=== PATIENT | male | born 1950 | race Caucasian/White ===

== ENCOUNTER → 2018-08-29 09:42 | Outpatient (CLI) | payer MEDICARE, SELFPAY ==
[2018-08-29 11:10] LABS: PSA,Total - Annual Screen 1.96 ng/mL (0.00-4.00)
== END ==
PROVIDERS: Family Provider Family Medicine; PCP Family Medicine; Referring Provider Urology; Visit Provider Urology
DX: Z12.5 Encounter for screening for malignant neoplasm of prostate (principal)
CPT/HCPCS: 36415; 84153; G0103

== ENCOUNTER → 2020-02-26 08:32 | Outpatient (CLI) | payer MEDICARE, SELFPAY ==
[2020-02-26 09:36] LABS: PSA,Total - Annual Screen 1.43 ng/mL (0.00-4.00)
== END ==
PROVIDERS: PCP Family Medicine; Referring Provider Urology; Visit Provider Urology
DX: Z12.5 Encounter for screening for malignant neoplasm of prostate (principal)
CPT/HCPCS: 36415; 84153; G0103

== ENCOUNTER → 2021-03-15 09:25 | Outpatient (CLI) | payer MEDICARE, SELFPAY ==
[2021-03-15 10:07] LABS: PSA,Total - Annual Screen 1.88 ng/mL (0.00-4.00)
== END ==
PROVIDERS: PCP Internal Medicine; Referring Provider Urology; Visit Provider Urology
DX: Z12.5 Encounter for screening for malignant neoplasm of prostate (principal)
CPT/HCPCS: 36415; 84153; G0103

== ENCOUNTER 2021-06-08 07:00 | Emergency (ER) | payer MEDICARE, SELFPAY ==
[2021-06-08 07:01] VITALS: BP 172/87; PULSE 84; RESP 18; TEMP 36.9; O2SAT 95; BMI 29.6
--- NOTE | 2021-06-08 07:31 | RAD_ITS ---
STUDY: X-RAY CHEST REASON FOR EXAM: Male, 70 years old. Sob, covid TECHNIQUE: Single AP portable view of the chest. COMPARISON: None. FINDINGS: Patchy bibasilar infiltrates. There is no demonstrated pleural abnormality. Normal size heart. Normal mediastinum and aj. Normal visualized pulmonary arteries. There is atherosclerotic tortuosity of the aortic arch and descending thoracic aorta. There are diffuse degenerative changes of the visualized thoracic spine. There is degenerative osteoarthritis of the bilateral shoulders. There is no demonstrated abnormality of the visualized soft tissue structures of the upper abdomen. RAD/Chest 1 View (Portable) IMPRESSION: Patchy bibasilar infiltrates. Electronically Signed: Jason Garcia MD at 8:09 EDT , Service support ,
[2021-06-08 07:56] VITALS: O2SAT 95
[2021-06-08 08:04] VITALS: O2SAT 93
--- NOTE | 2021-06-08 08:14 | EX.ED.DYSGE1 ---
HPI History of Present Illness Chief Complaint: Shortness of Breath Informant: patient Narrative Narrative: Patient presents secondary to shortness of breath. He developed symptoms of Covid and tested positive on June 04. He has been monitoring his oxygen level at home. He states this morning it dropped down to 93%. His PCP sent him in for evaluation. He was told he should get the infusion. Patient denies chest pain. He states his O2 sat seem to be better here than they were at home. He has had low-grade fever up to 99.7. [facility] Medical History Prostate CA Home Medications benzonatate [Tessalon Perles] 100 mg PO TID PRN #14 cap 06/08/21 [Rx Last Taken Unknown] dexamethasone [Decadron] 6 mg PO DAILY #5 tab 06/08/21 [Rx Last Taken Unknown] Allergy/AdvReac Type Severity Reaction Status Date / Time No Known Allergies Allergy Verified 06/08/21 07:06 Social History Smoking Status: Former smoker ROS ROS ED Constitutional Constitutional ED: Reports fever(s); Denies chills Eyes Eyes: Denies change in vision ENT ENT ED: Denies sore throat Cardiovascular Cardiovascular: Denies chest pain Respiratory/Chest Respiratory/Chest: Reports cough and dyspnea Gastrointestinal Gastrointestinal: Denies abdominal pain, diarrhea, nausea or vomiting Genitourinary Genitourinary ED: Denies dysuria Musculoskeletal Musculoskeletal: Reports myalgias; Denies back pain Integumentary Denies rash Neurologic Neurologic: Denies headache(s) or weakness Psychiatric Psychiatric: Denies anxiety or depression Allergic/Immunologic Allergic/Immunologic ED: Denies urticaria EXAM Physical Exam Const Vital Signs: 06/08/21 07:01 06/08/21 07:56 Temperature 98.4 F Temperature Source Oral Pulse Rate 84 Respiratory Rate 18 Respiratory Effort Normal Non-Labored Respiratory Depth Normal Respiratory Pattern Normal Blood Pressure 172/87 H Blood Pressure Mean 115 Pulse Ox 95 Oxygen Delivery Method Room Air Room Air Positive well nourished and well developed General Appearance ED: well developed HEENT Reports normocephalic and head/scalp atraumatic Eyes PERRL and EOMs intact bilaterally Neck supple Chest Wall inspection of chest normal and palpation of chest normal Resp normal respiratory effort and clear to auscultation bilaterally Cardio regular rate and regular rhythm GI normal to inspection, nondistended, normoactive bowel sounds Palpation: soft Extremity normal to inspection Neuro oriented x3 and no sensory deficits noted Sensorium / Orientation: alert Motor Exam: strength 5/5 throughout Psych mental status grossly normal Skin no rashes or lesions noted MDM MDM MDM Narrative Medical decision making narrative: Portable chest x-ray and pulse ox with ambulation is ordered. Radiography Diagnostic Testing: Radiology Impression Chest X-Ray 06/08/21 07:31 IMPRESSION: Patchy bibasilar infiltrates. Electronically Signed: Jason Garcia MD at 8:09 EDT , Service support , Treatment and Re-Evaluation Comments:: Chest x-ray shows bilateral haziness. Radiologist interpretation is reviewed. With ambulation patient's pulse ox drops to 91% but he quickly recovers. This does not qualify for inpatient oxygen. I did discuss with him that monoclonal antibody treatment is not an option if he is an inpatient. I will gladly refer him for monoclonal antibody treatment. He should expect them to call with further information. Patient has a prescription for Decadron, but only 5 days. We will write him an additional 5 days. We will also write for Tessalon Perles. Discharge Plan Triage Chief Complaint: Shortness of Breath ED Provider: Priti Ji Dx/Rx/DC Orders Clinical Impression: COVID-19 Instructions: Coronavirus Disease 2019 (COVID-19): Caring for Yourself or Others Prescriptions: New dexamethasone [Decadron] 6 mg tablet 6 mg PO DAILY Qty: 5 RF: 0 benzonatate [Tessalon Perles] 100 mg capsule 100 mg PO TID PRN (Reason: cough) Qty: 14 RF: 0 Other Ambulatory Orders: COVID Outpatient Monoclonal Antibody Referral (Routine) Location: None Selected Ordered By: Dr. Priti Ji Primary Care Provider: Danna Ayala Referrals: Danna Ayala DO [Primary Care Provider] - Disposition Disposition: Home, Self Care
[2021-06-08 09:12] VITALS: BP 138/77; PULSE 72; RESP 16; O2SAT 95
== END 2021-06-08 09:13 | disposition home or self-care (01) ==
PROVIDERS: Emergency Provider Emergency Medicine; PCP Internal Medicine
DX: U07.1 COVID-19 (principal); Z87.891 Personal history of nicotine dependence
CPT/HCPCS: 71045; 99282; J7050; M0243; A4216; Q0244

== ENCOUNTER 2021-06-08 15:55 | Outpatient (CLI) | payer MEDICARE, SELFPAY ==
--- NOTE | 2021-06-08 16:00 | NURSING ---
Pt brought to room in w/c by security. Assisted to chair, call colon with/in reach.
[2021-06-08] MEDS: 0.9% Saline Lock 10 ML Syringe IV (16:21)
[2021-06-08 16:23] VITALS: BP 135/71; PULSE 88; RESP 38; TEMP 39.2; O2SAT 93; BMI 29.4
--- NOTE | 2021-06-08 16:45 | NURSING ---
called and notified of pt going to ER for evaluation. Verbalized understanding. Confirmed pt had been confused that morning and she had had a hard time keeping him awake at home. will meet pt in the ER.
--- NOTE | 2021-06-08 16:55 | NURSING ---
#20 in lac left in pt's arm. supervisor plasma notified of pt going to ER. She came and took pt to er.
--- NOTE | 2021-06-08 16:58 | NURSING ---
called and notified of pt going to er. verbalized understanding. will meet pt in er.
--- NOTE | 2021-06-08 17:40 | NURSING ---
This RN received Call from carpentry supervisor notifying me that pt will return to complete his infusion.
[2021-06-08 17:50] VITALS: BP 110/85; PULSE 85; RESP 35; TEMP 39.4; O2SAT 91
--- NOTE | 2021-06-08 17:50 | NURSING ---
Pt returned to room and infusion restarted.
[2021-06-08] MEDS: Acetaminophen 325 MG Tablet 650 MG PO (17:55)
--- NOTE | 2021-06-08 17:55 | NURSING ---
Pt back from ER. Here to finish infusion. Infusion restarted.
[2021-06-08 18:10] VITALS: BP 112/86; PULSE 88; RESP 34; TEMP 39.3; O2SAT 91
[2021-06-08 18:40] VITALS: TEMP 37.9
[2021-06-08 19:05] VITALS: BP 102/66; PULSE 83; RESP 26; TEMP 37.9
== END 2021-06-08 19:05 | disposition home or self-care (01) ==
LOC: ICUOUT 15:56 → ICU 15:56
PROVIDERS: PCP Internal Medicine; Referring Provider Nurse Practitioner Acute Care; Visit Provider Nurse Practitioner Acute Care
DX: U07.1 COVID-19 (principal)
CPT/HCPCS: J7050; M0243; A4216; Q0244

== ENCOUNTER 2021-06-08 17:05 | Emergency (ER) | payer MEDICARE, SELFPAY ==
[2021-06-08 17:06] VITALS: BP 128/62; PULSE 85; RESP 18; TEMP 39.3; O2SAT 93; BMI 31.2
--- NOTE | 2021-06-08 17:29 | EDS_ITS ---
HPI History of Present Illness Chief Complaint: Allergic Reaction Informant: patient, spouse/S.O. and other (hospital healthcare staff) Onset/Context/Timing Onset: Today Context: Gradual Onset Timing: Waxes and wanes Quality: disorientation Current Severity: Gone Maximum Severity: Moderate Worsened by: ? fever Relieved by: nothing in particular Narrative Narrative: Patient has been having symptoms of Covid for about 4 days and recently diagnosed with it, referred for the monoclonal antibody infusion which he qualified for, that started this morning. About 5 minutes into the infusion staff noticed he was disoriented so they quickly stop the infusion and send him to the emergency department out of concern he was having a reaction. Patient states he is feeling much better right now, does not feel like he is having a fever but clocks in at a temperature of 102.7. The admits that she thinks this started before the infusion started, and also was having some disorientation earlier this morning when being discharged from the emergency department and getting into the car. She needed to help him buckle of the seatbelt. He did not feel feverish then either. She states that she was very surprised to see that his temperature was 102.7 now because he did not seem to be shaking or chilling. He states now he is feeling better, but still having the Covid symptoms of malaise, body aches, headache, cough. [facility] Medical History Hypertension Prostate CA Home Medications benzonatate [Tessalon Perles] 100 mg PO TID PRN #14 cap 06/08/21 [Rx Last Taken 06/08/21] dexamethasone [Decadron] 6 mg PO DAILY #5 tab 06/08/21 [Rx Last Taken Unknown] lisinopril 10 mg PO DAILY 06/08/21 [History Last Taken Unknown] Allergy/AdvReac Type Severity Reaction Status Date / Time No Known Allergies Allergy Verified 06/08/21 17:14 Social History Smoking Status: Never smoker ROS ROS ED Constitutional Constitutional ED: Reports body ache(s) and malaise; Denies chills Eyes Eyes: Denies change in vision or diplopia ENT ENT ED: Denies rhinorrhea or sore throat Cardiovascular Cardiovascular: Denies chest pain or palpitations Respiratory/Chest Respiratory/Chest: Denies cough or dyspnea Gastrointestinal Gastrointestinal: Denies abdominal pain, diarrhea, nausea or vomiting Genitourinary Genitourinary ED: Denies dysuria or hematuria Musculoskeletal Musculoskeletal: Denies back pain or neck pain Integumentary Denies abscess or rash Neurologic Neurologic: Reports as per HPI, confusion and headache(s); Denies paresthesias or weakness Psychiatric Psychiatric: Denies anxiety or suicidal thoughts EXAM Physical Exam Const Vital Signs: 06/08/21 17:06 06/08/21 17:14 Temperature 102.7 F H Temperature Source Oral Pulse Rate 85 Respiratory Rate 18 Respiratory Effort Short of Breath Respiratory Pattern Tachypnea Blood Pressure 128/62 H Blood Pressure Mean 84 Pulse Ox 93 Oxygen Delivery Method Room Air Positive well nourished and well developed General Appearance ED: well developed and NAD HEENT Reports moist mucous membranes normocephalic and atraumatic Eyes PERRL and EOMs intact bilaterally Neck full ROM and supple Resp normal respiratory effort and clear to auscultation bilaterally Cardio regular rate, regular rhythm and no murmurs GI non-tender and non-distended Auscultation: normoactive bowel sounds Palpation: soft Back/Spine no CVA tenderness General Back: other FROM Extremity normal to inspection General Extremety ED: Negative for edema, pulses abnormal or tenderness General Extremity: Negative for edema or pulses abnormal Neuro oriented x3, CN's II-XII intact bilaterally and no sensory deficits noted Sensorium / Orientation: awake and alert Motor Exam: strength 5/5 throughout Skin no rashes or lesions noted and no wounds MDM MDM MDM Narrative Medical decision making narrative: Patient is no longer disoriented, confirms that he was disoriented when he was getting the infusion a little bit ago, similar to how he was when he was leaving the ER this morning. I suspect this is related to him mounting a fever, she is in agreement. He certainly is not having a reaction from the monoclonal antibody infusion, which she only had 5 minutes of. The patient wants to finish the infusion if possible and the would like for him to as well. I called to discuss with nurse in charge of the infusion clinic, she states she sent the patient down out of concern for w orsening Covid disease and may not be a candidate for the infusion any longer, she was not concerned that he was having a reaction to it. In my assessment at this time, his pulse ox is 93% and he still meets criteria. He states he feels fine except for malaise and having headache, we gave him Tylenol for his fever and headache here. I do not think he has moderate-severe Covid disease, as he did not have that this morning either. He does not have a supplemental oxygen requirement at this time. We will send him back up to finish his infusion if they are able to do it. Discharge Plan Triage Chief Complaint: Allergic Reaction ED Provider: Festus Suresh Dx/Rx/DC Orders Clinical Impression: COVID-19 Instructions: ED - COVID Monoclonal AB Infusion ... Prescriptions: No Action dexamethasone [Decadron] 6 mg tablet 6 mg PO DAILY Qty: 5 RF: 0 benzonatate [Tessalon Perles] 100 mg capsule 100 mg PO TID PRN (Reason: cough) Qty: 14 RF: 0 lisinopril 10 mg tablet 10 mg PO DAILY RF: 0 Primary Care Provider: Danna Ayala Referrals: Danna Ayala DO [Primary Care Provider] - As Needed Disposition Disposition: Home, Self Care
[2021-06-08] MEDS: Acetaminophen 500 MG Tablet 1000 MG PO (17:33)
== END 2021-06-08 17:51 | disposition home or self-care (01) ==
PROVIDERS: Emergency Provider Emergency Medicine; PCP Internal Medicine
DX: U07.1 COVID-19 (principal); I10 Essential (primary) hypertension; Z79.899 Other long term (current) drug therapy
CPT/HCPCS: A4216

== ENCOUNTER → 2021-06-09 15:00 | Outpatient (CLI) | payer MEDICARE, SELFPAY ==
--- NOTE | 2021-06-09 15:03 | VDLE_ITS ---
Reason For Study: RLE pain RIGHT CFV is compressible. FV is compressible. POP V is compressible. T/P Trunk is compressible. PTV is compressible. RT PerV is compressible. GSV is normal. Procedure This is a venous duplex using B-mode, color flow and spectral Doppler. Exam performed in department. The exam was abbreviated due to the COVID 19 protocol. The exam was diagnostic. A preliminary report was called and/or faxed to Dr. Ayala. VL/Venous Duplex US, Unilateral Interpretation Summary Deep veins of the right lower extremity are patent and compressible segmentally . There is no evidence of right lower extremity deep vein thrombosis. The right great sapheno us vein appears patent and compressible segmentally. Ordering Physician: Danna Ayala Performed By: Kaden Almanza RVT
== END ==
PROVIDERS: PCP Internal Medicine; Referring Provider Internal Medicine; Visit Provider Internal Medicine
DX: M79.661 Pain in right lower leg (principal)
CPT/HCPCS: 93971

== ENCOUNTER 2021-06-09 23:40 | Inpatient (IN) | payer MEDICARE, SELFPAY ==
[2021-06-09 23:41] VITALS: BP 140/76; PULSE 82; RESP 20; TEMP 36.7; O2SAT 76; BMI 29.4
[2021-06-09 23:51] VITALS: O2SAT 87
--- NOTE | 2021-06-09 23:59 | ED.RN ---
2349 PT PLACED ON 4L NC AND CHIEF POWER DISPATCHER, WENT TO FIND PULSE OX AND CAME BACK TO FIND LEXII RN HAD PT ON PULSE OX READING 87 PERCENT.
[2021-06-10] VITALS (44 sets, daily range): BP systolic 112–182; BP diastolic 72–100; PULSE 62–90; RESP 12–94; TEMP 36.2–37.4; O2SAT 26–98; BMI 29.4
--- NOTE | 2021-06-10 00:10 | EKG12_ITS ---
Test Reason : SOB Blood Pressure : / mmHG Vent. Rate : 080 BPM Atrial Rate : 080 BPM P-R Int : 144 ms QRS Dur : 126 ms QT Int : 396 ms P-R-T Axes : 015 058 -02 degrees QTc Int : 456 ms Normal sinus rhythm Right bundle branch block Abnormal ECG Confirmed by PATRICIA LANCASTER, LUC ([id number]), photo editor AMANDEEP AGUILAR ([id number]) on 06/13/2021 1:06:33 PM Referred By: ALESIA Confirmed By:LUC GOMEZ MD
--- NOTE | 2021-06-10 00:25 | EDS_ITS ---
HPI History of Present Illness Chief Complaint: Shortness of Breath Informant: patient Onset/Context/Timing Onset: Yesterday Context: gradual Timing: Continuous Quality: Positive for Dyspnea on exertion Current Severity: Mild Maximum Severity: Severe Worsened by: Exertion Relieved by: Oxygen (Here in ER) Narrative Narrative: Patient tested positive for Covid 5 days ago, yesterday he had monoclonal antibody infusion, today he began getting more dyspneic and his pulse ox dropped into the mid-low 80s most of the time this evening. He denies any other new symptoms. [facility] Medical History Hypertension Prostate CA Home Medications benzonatate [Tessalon Perles] 100 mg PO TID PRN #14 cap 06/08/21 [Rx Last Taken 06/08/21] dexamethasone [Decadron] 6 mg PO DAILY #5 tab 06/08/21 [Rx Last Taken Unknown] lisinopril 10 mg PO DAILY 06/08/21 [History Last Taken Unknown] Allergy/AdvReac Type Severity Reaction Status Date / Time No Known Allergies Allergy Verified 06/09/21 23:49 Family History Other Cancer Surgical History (Updated 06/10/21 @ 01:[address] Randal Ferraro MD) Hx of cholecystectomy Social History Smoking Status: Never smoker ROS ROS ED Constitutional Constitutional ED: Reports fatigue, fever(s), malaise and subjective; Denies body ache(s) or chills Eyes Eyes: Denies change in vision or diplopia ENT ENT ED: Denies rhinorrhea or sore throat Cardiovascular Cardiovascular: Denies chest pain or palpitations Respiratory/Chest Respiratory/Chest: Reports cough and dyspnea Gastrointestinal Gastrointestinal: Denies abdominal pain, diarrhea, nausea or vomiting Genitourinary Genitourinary ED: Denies dysuria or hematuria Musculoskeletal Musculoskeletal: Denies back pain or neck pain Integumentary Denies abscess or rash Neurologic Neurologic: Denies headache(s), paresthesias or weakness Psychiatric Psychiatric: Denies anxiety or suicidal thoughts EXAM Physical Exam Const Vital Signs: 06/09/21 23:41 06/09/21 23:51 06/10/21 00:05 Temperature 98.0 F Temperature Source Temporal Pulse Rate 82 Respiratory Rate 20 H Respiratory Effort Short of Breath Labored Respiratory Depth Deep Respiratory Pattern Tachypnea Blood Pressure 140/76 H Blood Pressure Mean 97 Pulse Ox 76 87 88 Oxygen Delivery Method Room Air Nasal Cannula Non-Rebreather Oxygen Flow Rate (L/min) 6 15 Fraction of Inspired Oxygen (FIO2) 06/10/21 00:11 06/10/21 00:15 06/10/21 01:42 Temperature 98.0 F Temperature Source Temporal Pulse Rate 76 83 Respiratory Rate 26 H 31 H Respiratory Effort Respiratory Depth Respiratory Pattern Tachypnea Blood Pressure 144/74 H Blood Pressure Mean 97 Pulse Ox 93 86 Oxygen Delivery Method Airvo Airvo Oxygen Flow Rate (L/min) 15 Fraction of Inspired Oxygen (FIO2) 85 85 06/10/21 01:43 06/10/21 01:52 06/10/21 01:53 Temperature Temperature Source Pulse Rate 74 Respiratory Rate 29 H Respiratory Effort Respiratory Depth Respiratory Pattern Tachypnea Blood Pressure Blood Pressure Mean Pulse Ox 93 Oxygen Delivery Method Airvo Oxygen Flow Rate (L/min) Fraction of Inspired Oxygen (FIO2) 90 85 06/10/21 02:11 Temperature 97.2 F L Temperature Source Temporal Pulse Rate 78 Respiratory Rate 32 H Respiratory Effort Respiratory Depth Respiratory Pattern Blood Pressure 152/83 H Blood Pressure Mean 106 Pulse Ox 94 Oxygen Delivery Method Bi-pap Oxygen Flow Rate (L/min) Fraction of Inspired Oxygen (FIO2) Positive well nourished and well developed Constitutional Narrative: Able to speak in 10 word sentences on a nonrebreather General Appearance ED: well developed and NAD HEENT Reports moist mucous membranes normocephalic and atraumatic Eyes PERRL and EOMs intact bilaterally Neck full ROM and supple Resp normal respiratory effort Auscultation: crackles right base and mid Cardio regular rate, regular rhythm and no murmurs GI non-tender and non-distended Auscultation: normoactive bowel sounds Palpation: soft Back/Spine no CVA tenderness General Back: other FROM Extremity normal to inspection General Extremety ED: Negative for edema, pulses abnormal or tenderness General Extremity: Negative for edema or pulses abnormal Neuro oriented x3, CN's II-XII intact bilaterally and no sensory deficits noted Sensorium / Orientation: awake and alert Motor Exam: strength 5/5 throughout Skin no rashes or lesions noted and no wounds MDM MDM MDM Narrative Medical decision making narrative: Patient requiring nonrebreather to keep his oxygen saturations at 88-90%, although he is breathing much easier and able to converse without any distress. We put him on airVo, this did help him for a while but he continued to drop his saturations and the patient stated he preferred a mask so he was put on BiPAP. X-ray shows worsening bilateral Covid infiltrates, his lactate is within normal limits, his D-dimer is elevated as suspected. He was sent for CT angiography of the chest to rule out pulmonary embolus, that returned negative for acute PE, the extensive bilateral groundglass opacities seen on x-rays are also noted. Patient will be admitted to ICU. Lab Data Attestation: I reviewed the patient's lab results. Labs: Laboratory Results - last 24 hr 06/10/21 06/10/21 06/10/21 00:05 00:05 00:05 WBC 11.4 H RBC 4.34 L Hgb 13.2 Hct 39.4 L MCV 90.8 MCH 30.4 MCHC 33.5 RDW Std Deviation 47.1 H RDW Coeff of [place] 14.0 Plt Count 121 L MPV 10.7 Immature Gran % (Auto) 0.600 Neut % (Auto) 91.0 H Lymph % (Auto) 4.3 L [place] % (Auto) 4.0 Eos % (Auto) 0.0 Baso % (Auto) 0.1 Absolute Neuts (auto) 10.4 H Absolute Lymphs (auto) 0.49 L Nucleated RBC % 0 Differential Comment SCANNED D-Dimer Quant (PE/DVT) Sodium 137 Potassium 4.0 Chloride 105 Carbon Dioxide 24.0 Anion Gap 8 BUN 24 H Creatinine 1.00 Estim Creat Clear Calc 73.29 Est GFR (MDRD) Af Amer 94 Est GFR (MDRD) Non-Af 78 BUN/Creatinine Ratio 24.0 H Glucose 207 H Lactic Acid 1.7 Calcium 8.8 Total Bilirubin 0.40 AST 38 H ALT 34 Alkaline Phosphatase 46 Troponin I High Sens 22 Total Protein 7.1 Albumin 2.9 L Globulin 4.2 Albumin/Globulin Ratio 0.7 L 06/10/21 00:25 WBC RBC Hgb Hct MCV MCH MCHC RDW Std Deviation RDW Coeff of [place] Plt Count MPV Immature Gran % (Auto) Neut % (Auto) Lymph % (Auto) [place] % (Auto) Eos % (Auto) Baso % (Auto) Absolute Neuts (auto) Absolute Lymphs (auto) Nucleated RBC % Differential Comment D-Dimer Quant (PE/DVT) 1.16 H* Sodium Potassium Chloride Carbon Dioxide Anion Gap BUN Creatinine Estim Creat Clear Calc Est GFR (MDRD) Af Amer Est GFR (MDRD) Non-Af BUN/Creatinine Ratio Glucose Lactic Acid Calcium Total Bilirubin AST ALT Alkaline Phosphatase Troponin I High Sens Total Protein Albumin Globulin Albumin/Globulin Ratio Radiography Chest X-Ray - ED: 1 View, Read by ED Physician, Right Infiltrate and Left Infiltrate Diagnostic Testing: Radiology Impression Chest X-Ray 06/10/21 00:35 IMPRESSION: Increased finding of bilateral pneumonia. Electronically Signed: Charanjit Carranza MD at 1:12 EDT Tel , Service support , Chest CTA 06/10/21 01:09 IMPRESSION: Extensive bilateral and confluent groundglass opacity concerning for multifocal pneumonia. No finding of pulmonary embolus. Electronically Signed: Charanjit Carranza MD at 1:56 EDT Tel , Service support , EKG Initial EKG: Attestation: I personally reviewed and interpreted this EKG as follows: Interpretation: Sinus Rhythm, No Acute Injury Pattern and RBBB Critical Care Time Critical Care Time: Yes Critical care time (excluding procedures): 30-74 minutes (35 min), Including time spent:, Discussing w/Patient &/or Family/Field Operations Farm Manager, Discussing w/Consultants, Arranging Admission or Transfer and Performing Direct Patient Care at Bedside Discharge Plan Dx/Rx/DC Orders Clinical Impression: Pneumonia due to COVID-19 virus, Acute respiratory failure with hypoxia Disposition Disposition: [facility]
[2021-06-10] MEDS: dexAMETHasone 10 MG/ML Vial 6 MG IV ×2 (00:28→11:00)
[2021-06-10 00:35] LABS: Absolute Lymphocyte Count 0.49 X10^3/uL (0.83-4.51); Absolute Neutrophil Count 10.4 X10^3/uL (2.0-7.7); Basophil# 0.01 X10^3/uL; Basophil% 0.1 % (0-1); Hematocrit 39.4 % (40-54); Hemoglobin 13.2 g/dL (13.0-16.5); Lymphocyte # 0.49 X10^3/ul (0.83-4.51); Lymphocyte % 4.3 % (19-41); Mean Corp Hgb Conc 33.5 g/dL (32-36); Mean Corpuscular Hgb 30.4 pg (27.0-32.0); Mean Corpuscular Volume 90.8 fL (80-94); Mean Platelet Vol. 10.7 fl (6.2-12.0); Monocyte# 0.45 X10^3/uL; NRBC Flagged by Analyzer 0 % (0-5); Neutrophil # 10.37 X10^3/uL (2.7-7.7); POSITIVE DIFFERENTIAL YES; Platelet Count 121 K/mm3 (150-450); RBC Distribution Width SD 47.1 fl (35.1-43.9); Red Blood Count 4.34 M/mm3 (4.6-6.2); White Blood Count 11.4 K/mm3 (4.4-11.0)
--- NOTE | 2021-06-10 00:35 | RAD_ITS ---
STUDY: X-RAY CHEST REASON FOR EXAM: Male, 70 years old. cough sob COVID TECHNIQUE: Portable, upright chest radiograph COMPARISON: 06/08/2021 FINDINGS: Bilateral mid to lower lung infiltrative opacities are increased compared 06/08/2021. There is no demonstrated pleural abnormality. Normal size heart. Normal mediastinum and aj. Normal visualized pulmonary arteries. Normal visualized aortic arch and descending thoracic aorta. Normal visualized thoracic spine. Normal visualized ribs, clavicles, and shoulders. There is no demonstrated abnormality of the visualized soft tissue structures of the upper abdomen. RAD/Chest 1 View (Portable) IMPRESSION: Increased finding of bilateral pneumonia. Electronically Signed: Charanjit Carranza MD at 1:12 EDT Tel , Service support ,
[2021-06-10 00:37] LABS: Differential Indicated SCAN CRITERIA MET
--- NOTE | 2021-06-10 00:41 | HP.PCM.HOS_ITS ---
[facility] - General General Date of Admission: 06/10/21 Date of Service: 06/10/21 Chief Complaint: Shortness of breath HPI Narrative RANDAL SAGASTUME, is a 70 M with a significant history of hypertension and prostate cancer who presents at the emergent department because of progressively worsening shortness of breath. His symptoms started 5 days prior to presentation. A day before presentation he received an infusion of monoclonal antibody. Associated with his symptoms is fever and dry cough. He denies chills and muscle ache. He denies anorexia. He denies change in sensation in smell and taste. Because his oxygen saturation decreased to the 80s he came to emergency department. At emergent department because of hypoxia he was initi ally placed on airvo. He reported for the past 6 months has been taking hydroxychloroquine. Also he has been taking ivermectin. [facility] Medical History Hypertension Prostate CA Home Medications benzonatate [Tessalon Perles] 100 mg PO TID PRN #14 cap 06/08/21 [Rx Last Taken 06/08/21] dexamethasone [Decadron] 6 mg PO DAILY #5 tab 06/08/21 [Rx Last Taken Unknown] lisinopril 10 mg PO DAILY 06/08/21 [History Last Taken Unknown] Allergy/AdvReac Type Severity Reaction Status Date / Time No Known Allergies Allergy Verified 06/09/21 23:49 Family History Other Cancer Surgical History (Updated 06/10/21 @ 01:[address] Randal Ferraro MD) Hx of cholecystectomy Social History Smoking Status: Never smoker ROS ROS Narrative Constitutional: Denies anorexia and change in weight Eyes: Denies blurry vision, change in eye color, change in vision, discharge from eye(s), double vision, erythema, eye pain, loss of vision or other HEENT: Denies abnormal hearing, dysphagia, ear pain, epistaxis, headache(s), hearing loss, nasal congestion, nasal discharge, post nasal drip, sinus pressure, sore throat or other Cardiovascular: Denies chest pain. Denies dyspnea on exertion, orthopnea and paroxysmal nocturnal dyspnea Respiratory/Chest: Reports shortness of breath and productive cough. Denies wheezes. Gastrointestinal: Denies abdominal pain, coffee ground emesis, constipation, diarrhea, dyspepsia, hematemesis, hematochezia, loose stools, melena, nausea, vomiting or other Genitourinary: Denies burning urination, difficulty urinating, dysuria, [place], nocturia, urinary frequency, urinary hesitancy, urinary incontinence, urinary urgency or other Musculoskeletal: Denies arthralgias, back pain, joint pain, joint stiffness, joint swelling, myalgias, neck pain or other Neurologic: Denies abnormal gait, abnormal speech, confusion, disequilibrium, dizziness, focal weakness, headache(s), numbness, paresthesias, seizure-like activity, seizures, syncope, tingling, tremor(s) or other Psychiatric: Denies anxiety, depression, homicidal ideation, suicidal ideation or other Endocrinology: Denies change in body appearance, cold intolerance, excessive sweating, heat intolerance, polydipsia, polyuria or other Hematologic/Lymphatic: Denies anemia, easy bleeding, easy bruising, lymphadenopathy or other Integumentary: Denies rashes Allergic/Immunologic: Denies rhinitis, hives, eczema, asthma or other Vital Signs Vital Signs Vital Signs: 06/09/21 23:41 06/09/21 23:51 06/10/21 00:05 Temperature 98.0 F Temperature Source Temporal Pulse Rate 82 Respiratory Rate 20 H Respiratory Effort Short of Breath Labored Respiratory Depth Deep Respiratory Pattern Tachypnea Blood Pressure 140/76 H Blood Pressure Mean 97 Pulse Ox 76 87 88 Oxygen Delivery Method Room Air Nasal Cannula Non-Rebreather Oxygen Flow Rate (L/min) 6 15 Fraction of Inspired Oxygen (FIO2) 06/10/21 00:11 06/10/21 00:15 Temperature Temperature Source Pulse Rate 76 Respiratory Rate 26 H Respiratory Effort Respiratory Depth Respiratory Pattern Tachypnea Blood Pressure Blood Pressure Mean Pulse Ox 93 Oxygen Delivery Method Airvo Oxygen Flow Rate (L/min) Fraction of Inspired Oxygen (FIO2) 85 Weight Weight: 98.43 kg Body Mass Index (BMI) 29.4 Physical Exam Narrative Physical exam: General: Well-nourished, well-developed, no acute distress Head: Normocephalic, atraumatic, no tenderness Eyes: PERRLA, EOMI ENT, no trauma, moist mucous membranes, no rhinorrhea Neck: Nontender, full range of motion, no spinal tenderness, deformities, step- off CVS: Regular rate and rhythm Respiratory: On airvo. In acute respiratory distress. Using accessory muscles of respiration. Rales. Abdomen: Soft, nontender, nondistended, normal bowel sounds, no masses : Deferred Back: Nontender, no CVA tenderness, no midline spinal tenderness, deformities, step-offs Extremities: Nontender full range of motion, no trauma Skin: Normal color, no trauma, abrasions Neuro: Alert, oriented, cranial nerves II through XII grossly intact. Psychiatry: Normal mood. Normal affect. Not depressed. Not anxious. Results Lab / Micro Data Result Diagrams: 06/10/21 00:05 06/10/21 00:05 Labs: Laboratory Results - last 24 hr 06/10/21 00:05: WBC 11.4 H, RBC 4.34 L, Hgb 13.2, Hct 39.4 L, MCV 90.8, MCH 30.4, MCHC 33.5, RDW Std Deviation 47.1 H, RDW Coeff of [place] 14.0, Plt Count 121 L, MPV 10.7, Immature Gran % (Auto) 0.600, Neut % (Auto) 91.0 H, Lymph % (Auto) 4.3 L, [place] % (Auto) 4.0, Eos % (Auto) 0.0, Baso % (Auto) 0.1, Absolute Neuts (auto) 10.4 H, Absolute Lymphs (auto) 0.49 L, Nucleated RBC % 0 Assessment & Plan Assessment/Plan (1) Acute respiratory failure with hypoxia: (2) Pneumonia due to COVID-19 virus: (3) COVID-19: PLAN: Acute hypoxemic respiratory failure secondary to SARS- COV 2 Patient initially required airvol at the emergency department. He later requested for a mask. Per discussed emergent department doctor patient will be placed on BiPAP. Positive coronavirus test outpatient. Interpretation of chest x-ray by radiologist and myself: Increased findings of bilateral pneumonia. D-dimer was elevated. Follow-up chest CTA was ordered at the emergent department and the result is pending. Review of records shows that outpatient receive monoclonal antibody a day before presentation. While receiving the on-call antibody reportedly patient became confused; febrile and so monoclonal antibody was started. Although his felt that patient supposed reaction symptoms were present before the monoclonal antibody was started. Procalcitonin was ordered. Started on IV Decadron at the emergency department and continued. Review of emergency department labs showed normal creatinine clearance and appropriate liver biochemistry. AST is mildly elevated at 38. Will start patient on remdesivir. Trend CMP and CBC. Continue on home Tessalon Perles as needed. Tylenol for fever Mucinex ordered. Admit to intensive care unit and consult reservoir caretaker DVT prophylaxis: Subcutaneous Lovenox per Covid protocol Charges/Coding Visit Charges Inpatient E&M: 42490 Init Hosp L3
[2021-06-10 00:49] LABS: D-Dimer Quantitative (DVT/PE) 1.16 FEU/ug/m (0.27-0.49)
[2021-06-10 00:54] LABS: Differential Comment SCANNED
[2021-06-10 01:01] LABS: ALB/GLOB Ratio 0.7 RATIO (0.9-2.4); AST(SGOT) 38 U/L (15-37); Alanine Aminotransfer ALT/SGPT 34 U/L (16-61); Albumin, Serum 2.9 g/dL (3.2-5.0); Alkaline Phosphatase 46 U/L (45-117); Anion Gap 8 (5-15); BUN 24 mg/dL (7-18); Calcium,Total 8.8 mg/dL (8.5-10.1); Chloride 105 mmol/L (98-107); EST Glomerular Filtration Rate 78 mL/min (>60); Est Glom Filt Rate - Afr Amer 94 mL/min (>60); Estimated Creatinine Clearance 73.29 ml/min; Globulin 4.2 g/dL (2.2-4.2); Glucose 207 mg/dL (74-106); Protein, Total 7.1 g/dL (6.4-8.2); Sodium Level 137 mmol/L (136-145); Troponin-I HS 22 pg/mL (3.0-78.0)
--- NOTE | 2021-06-10 01:09 | CT_ITS ---
STUDY: CTA CHEST REASON FOR EXAM: Male, 70 years old. covid, hypoxemia, elevated d-dimer RADIATION DOSAGE (If Supplied By Facility): CTDIvol = ( 16.14 ) mGy, DLP = ( 532.52 ) mGycm TECHNIQUE: The examination was performed with the intravenous administration of IV 100mL Isovue-370. Post-processing of the angiographic images was performed, with multiplanar reformation and 3D reconstruction. Individualized dose optimization techniques were used for this CT. COMPARISON: None. FINDINGS: This exam is complicated by respiratory motion artifact. Normal enhancement of the main pulmonary artery and right and left pulmonary arteries. Normal enhancement of the bilateral peripheral pulmonary arteries. There is no demonstrated pulmonary embolism. Normal thoracic aorta and visualized great vessels. There is no demonstrated aortic dissection. Normal heart and pericardium. Normal mediastinum. Normal hilar regions. Normal visualized trachea and bronchi. The lungs are well expanded. Extensive and confluent groundglass densities throughout both lungs. Normal pleura. Normal chest wall structures. Thoracic vertebral alignment is maintained. 5 cm left hepatic cyst. CT/CTA Chest W/WO Contrast IMPRESSION: Extensive bilateral and confluent groundglass opacity concerning for multifocal pneumonia. No finding of pulmonary embolus. Electronically Signed: Charanjit Carranza MD at 1:56 EDT Tel , Service support ,
[2021-06-10 01:11] LABS: Lactic Acid 1.7 mmol/L (0.4-1.9)
[2021-06-10 03:46] LABS: Procalcitonin 0.64 ng/mL (0.00-0.09)
[2021-06-10] MEDS: 0.9% Saline Lock 10 ML Syringe IV (04:18)
[2021-06-10] MEDS: guaiFENesin 1,200 MG Tablet 1200 MG PO ×3 (04:19→23:47)
[2021-06-10 04:26] LABS: Absolute Lymphocyte Count 0.32 X10^3/uL (0.83-4.51); Absolute Neutrophil Count 10.3 X10^3/uL (2.0-7.7); Basophil# 0.01 X10^3/uL; Basophil% 0.1 % (0-1); Hematocrit 37.9 % (40-54); Hemoglobin 12.7 g/dL (13.0-16.5); Lymphocyte # 0.32 X10^3/ul (0.83-4.51); Lymphocyte % 2.9 % (19-41); Mean Corp Hgb Conc 33.5 g/dL (32-36); Mean Corpuscular Hgb 30.4 pg (27.0-32.0); Mean Corpuscular Volume 90.7 fL (80-94); Mean Platelet Vol. 10.3 fl (6.2-12.0); Monocyte# 0.36 X10^3/uL; Monocyte% 3.3 % (0-10); NRBC Flagged by Analyzer 0 % (0-5); Neutrophil # 10.27 X10^3/uL (2.7-7.7); Neutrophil % 92.9 % (47-70); POSITIVE DIFFERENTIAL YES; Platelet Count 120 K/mm3 (150-450); RBC Distribution Width SD 46.6 fl (35.1-43.9); Red Blood Count 4.18 M/mm3 (4.6-6.2); White Blood Count 11.1 K/mm3 (4.4-11.0)
[2021-06-10 04:27] LABS: Differential Indicated SCAN CRITERIA MET
[2021-06-10 04:47] LABS: ALB/GLOB Ratio 0.7 RATIO (0.9-2.4); AST(SGOT) 36 U/L (15-37); Alanine Aminotransfer ALT/SGPT 33 U/L (16-61); Albumin, Serum 2.8 g/dL (3.2-5.0); Alkaline Phosphatase 40 U/L (45-117); Anion Gap 5 (5-15); BUN 21 mg/dL (7-18); Calcium,Total 8.1 mg/dL (8.5-10.1); Chloride 107 mmol/L (98-107); Creatinine, Serum 0.88 mg/dL (0.70-1.30); EST Glomerular Filtration Rate 91 mL/min (>60); Est Glom Filt Rate - Afr Amer 110 mL/min (>60); Estimated Creatinine Clearance 83.28 ml/min; Globulin 3.9 g/dL (2.2-4.2); Glucose 158 mg/dL (74-106); Potassium 4.2 mmol/L (3.5-5.1); Protein, Total 6.7 g/dL (6.4-8.2); Sodium Level 137 mmol/L (136-145)
[2021-06-10 04:51] LABS: Differential Comment SCANNED
--- NOTE | 2021-06-10 07:58 | CON.PCM.CC_ITS ---
Assessment & Plan Assessment/Plan (1) Pneumonia due to COVID-19 virus: (2) Acute respiratory failure with hypoxia: PLAN: RECOMMENDATIONS: 1. Continue Decadron and Remdesivir therapy 2. Wean oxygen as tolerated. Continue BiPAP with sleep 3. Potentially attempt Airvo to facilitate p.o. nutrition 4. Discontinue Plaquenil and ivermectin from home medications. 5. Discontinue Tessalon Perles IMPRESSIONS: 1. Acute hypoxic respiratory failure secondary to COVID-19 pneumonia Patient did receive monoclonal antibodies, but now qualifies for remdesivir and Decadron. We will continue with BiPAP therapy for now, but may attempt Airvo to facilitate p.o. nutrition. Plaquenil and ivermectin should be discontinued as these do not have a role based on the most current literature. Tessalon Perles are likely not to be helpful. Continue with Mucinex. 2. Hypertension/obesity/advanced age/inappropriate hydroxychloroquine use Complicates care, management, recovery and prognosis. Okay to continue l isinopril for now. We will have to watch renal function closely. No Plaquenil or ivermectin is indicated. 3. CODE STATUS Various options for CODE STATUS were reviewed with the patient. After review of all options, patient has agreed to a full CODE STATUS. Total dis cussion time of 16 minutes. HPI Consult Data Date of Consult: 06/10/21 HPI Narrative HPI Narrative: HAVEN SAGASTUME is a 70 M, with past medical history listed below, who presents to [facility] 06[facility]10[facility]2021 secondary to progressive hypoxia. Patient had tested positive for COVID-19 5 days prior to presentation and had received a monoclonal antibody on the day prior to this ER evaluation. Patient reportedly had gone home and became more short of breath and saturations were dipping into the mid to low 80s for most of the evening. Patient had been on Decadron at home. Patient does not have any history of respiratory illnesses that he is aware of and has never been a smoker. In the ER, patient was afebrile, but tachypneic into the 30s and requiring Airvo versus BiPAP to maintain saturations. Blood pressure was slightly elevated at 152/83. Laboratory work-up showed a leukocytosis of 11.4, platelet count of 121 and elevated glucose of 207. Remaining chemistries were relatively unremarkable. Lactate was 1.7 but D-dimer was elevated at 1.16. Patient had a chest x-ray showing progressive infiltrates bilaterally and this was confirmed by CTA of the chest. No pulmonary embolism was noted, but patient did have scattered groundglass opacities. Patient was then admitted to the intensive care unit for further evaluation on BiPAP therapy. Since being admitted to the hospital, patient feels subjectively slightly improv ed. Patient has been able to be moved to 60% FiO2 on the BiPAP. Patient continues to have a cough and reports a mild headache. Patient denies any hemoptysis, sinus congestion, nausea or vomiting. Patient has not had any significant diaphoresis. Patient does report that he has been taking hydrox ychloroquine and ivermectin to avoid Covid. Patient denies requiring supplemental oxygen previously. Patient reports that he did not receive COVID- 19 vaccination. Review of systems otherwise negative from a constitutional, HEENT, respiratory, cardiovascular, GI, genitourinary, musculoskeletal, skin, neurologic, psychiatric and hematologic system unless stated above. [facility] Medical History Hypertension Prostate CA Home Medications benzonatate [Tessalon Perles] 100 mg PO TID PRN #14 cap 06/08/21 [Rx Last Taken 06/08/21] dexamethasone [Decadron] 6 mg PO DAILY #5 tab 06/08/21 [Rx Last Taken Unknown] lisinopril 10 mg PO DAILY 06/08/21 [History Last Taken Unknown] Allergy/AdvReac Type Severity Reaction Status Date / Time No Known Allergies Allergy Verified 06/09/21 23:49 Family History Other Cancer Surgical History Hx of cholecystectomy Social History Smoking Status: Never smoker ROS ROS Narrative See HPI Physical Exam Narrative Good BiPAP synchrony Const alert, oriented x3 and no apparent distress General Appearance: cooperative, well developed and on BiPAP Nutritional Appearance: obese HEENT normocephalic, head/scalp atraumatic and moist oral mucous membranes Eyes PERRL and EOMs intact bilaterally Neck full ROM and no lymphadenopathy Chest inspection of chest normal Resp no use of accessory muscles Effort and Inspection: symmetric chest movement Auscultation: diminished lung sounds; Negative for rales, rhonchi or wheezes Percussion: Negative for dullness Cardio regular rate, regular rhythm, S1 normal heart sound, S2 normal heart sound, no murmurs, no rub and no gallops GI normal to inspection, nondistended, normoactive bowel sounds no CVA tenderness Extremity no clubbing, cyanosis or edema Skin no rashes or lesions noted Neuro oriented x3, CN's II-XII intact bilaterally, moves all extremities and no focal motor deficits Psych cooperative and affect normal Lab / Micro Data Result Diagrams: 06/10/21 04:18 06/10/21 04:18 Labs: Laboratory Results - last 24 hr 06/10/21 00:05: WBC 11.4 H, RBC 4.34 L, Hgb 13.2, Hct 39.4 L, MCV 90.8, MCH 30.4, MCHC 33.5, RDW Std Deviation 47.1 H, RDW Coeff of [place] 14.0, Plt Count 121 L, MPV 10.7, Immature Gran % (Auto) 0.600, Neut % (Auto) 91.0 H, Lymph % (Auto) 4.3 L, [place] % (Auto) 4.0, Eos % (Auto) 0.0, Baso % (Auto) 0.1, Absolute Neuts (auto) 10.4 H, Absolute Lymphs (auto) 0.49 L, Nucleated RBC % 0, Differential Comment SCANNED 06/10/21 00:05: Sodium 137, Potassium 4.0, Chloride 105, Carbon Dioxide 24.0, Anion Gap 8, BUN 24 H, Creatinine 1.00, Estim Creat Clear Calc 73.29, Est GFR (MDRD) Af Amer 94, Est GFR (MDRD) Non-Af 78, BUN/Creatinine Ratio 24.0 H, Glucose 207 H, Calcium 8.8, Total Bilirubin 0.40, AST 38 H, ALT 34, Alkaline Phosphatase 46, Troponin I High Sens 22, Total Protein 7.1, Albumin 2.9 L, Globulin 4.2, Albumin/Globulin Ratio 0.7 L 06/10/21 00:05: Lactic Acid 1.7 06/10/21 00:25: D-Dimer Quant (PE/DVT) 1.16 H* 08/20/21 02:45: Procalcitonin 0.64 H 06/10/21 04:18: WBC 11.1 H, RBC 4.18 L, Hgb 12.7 L, Hct 37.9 L, MCV 90.7, MCH 30.4, MCHC 33.5, RDW Std Deviation 46.6 H, RDW Coeff of [place] 14.0, Plt Count 120 L, MPV 10.3, Immature Gran % (Auto) 0.800, Neut % (Auto) 92.9 H, Lymph % (Auto) 2.9 L, [place] % (Auto) 3.3, Eos % (Auto) 0.0, Baso % (Auto) 0.1, Absolute Neuts (auto) 10.3 H, Absolute Lymphs (auto) 0.32 L, Nucleated RBC % 0, Differential Comment SCANNED 06/10/21 04:18: Sodium 137, Potassium 4.2, Chloride 107, Carbon Dioxide 25.0, Anion Gap 5, BUN 21 H, Creatinine 0.88, Estim Creat Clear Calc 83.28, Est GFR (MDRD) Af Amer 110, Est GFR (MDRD) Non-Af 91, BUN/Creatinine Ratio 24.0 H, Glucose 158 H, Calcium 8.1 L, Total Bilirubin 0.50, AST 36, ALT 33, Alkaline Phosphatase 40 L, Total Protein 6.7, Albumin 2.8 L, Globulin 3.9, Albumin/Globulin Ratio 0.7 L Radiology Impression Chest X-Ray 06/10/21 00:35 IMPRESSION: Increased finding of bilateral pneumonia. Electronically Signed: Charanjit Carranza MD at 1:12 EDT Tel , Service support , Chest CTA 06/10/21 01:09 IMPRESSION: Extensive bilateral and confluent groundglass opacity concerning for multifocal pneumonia. No finding of pulmonary embolus. Electronically Signed: Charanjit Carranza MD at 1:56 EDT Tel , Service support , Charges/Coding Visit Charges Inpatient E&M: 53221 Init Hosp L3 Multi Select Codes Hospitalists' Procedures Procedures: 71433 Advncd Care Plan 30 Min
--- NOTE | 2021-06-10 10:26 | PN.HOSP_ITS ---
Subjective Subjective On BIPAP and is tolerating it. States that he has had 2 brothers of COVID-19 and VTE. Was taking hydroxychloroquine and ivermectin for the past 6 months provided by PCP for COVID-19 prevention. He did not get vaccination for COVID- 19. Objective Data Objective Data Vital Signs: Vital Signs Temp Pulse Resp BP Pulse Ox 37.4 C H 72 25 H 164/86 H 95 06/10/21 08:00 06/10/21 10:20 06/10/21 10:20 06/10/21 10:00 06/10/21 10:20 Oxygen Flow Rate (L/min) 60 Oxygen Delivery Method Bi-pap Weight: 98.43 kg Body Mass Index (BMI) 29.4 Intake & Output: Intake and Output for Last 24 Hours 06/08/21 06/09/21 06/10/21 23:59 23:59 23:59 Intake Total 850 / 850 Output Total 550 / 550 Balance 300 / 300 Lab / Micro Data Result Diagrams: 06/10/21 04:18 06/10/21 04:18 Labs: Laboratory Results - last 24 hr 06/10/21 00:05: WBC 11.4 H, RBC 4.34 L, Hgb 13.2, Hct 39.4 L, MCV 90.8, MCH 30.4, MCHC 33.5, RDW Std Deviation 47.1 H, RDW Coeff of [place] 14.0, Plt Count 121 L, MPV 10.7, Immature Gran % (Auto) 0.600, Neut % (Auto) 91.0 H, Lymph % (Auto) 4.3 L, [place] % (Auto) 4.0, Eos % (Auto) 0.0, Baso % (Auto) 0.1, Absolute Neuts (a uto) 10.4 H, Absolute Lymphs (auto) 0.49 L, Nucleated RBC % 0, Differential Comment SCANNED 06/10/21 00:05: Sodium 137, Potassium 4.0, Chloride 105, Carbon Dioxide 24.0, Anion Gap 8, BUN 24 H, Creatinine 1.00, Estim Creat Clear Calc 73.29, Est GFR (MDRD) Af Amer 94, Est GFR (MDRD) Non-Af 78, BUN/Creatinine Ratio 24.0 H, Glucose 207 H, Calcium 8.8, Total Bilirubin 0.40, AST 38 H, ALT 34, Alkaline Phosphatase 46, Troponin I High Sens 22, Total Protein 7.1, Albumin 2.9 L, Globulin 4.2, Albumin/Globulin Ratio 0.7 L 06/10/21 00:05: Lactic Acid 1.7 06/10/21 00:25: D-Dimer Quant (PE/DVT) 1.16 H* 06/10/21 02:45: Procalcitonin 0.64 H 06/10/21 04:18: WBC 11.1 H, RBC 4.18 L, Hgb 12.7 L, Hct 37.9 L, MCV 90.7, MCH 30.4, MCHC 33.5, RDW Std Deviation 46.6 H, RDW Coeff of [place] 14.0, Plt Count 120 L, MPV 10.3, Immature Gran % (Auto) 0.800, Neut % (Auto) 92.9 H, Lymph % (Auto) 2.9 L, [place] % (Auto) 3.3, Eos % (Auto) 0.0, Baso % (Auto) 0.1, Absolute Neuts (auto) 10.3 H, Absolute Lymphs (auto) 0.32 L, Nucleated RBC % 0, Differential Comment SCANNED 06/10/21 04:18: Sodium 137, Potassium 4.2, Chloride 107, Carbon Dioxide 25.0, Anion Gap 5, BUN 21 H, Creatinine 0.88, Estim Creat Clear Calc 83.28, Est GFR (MDRD) Af Amer 110, Est GFR (MDRD) Non-Af 91, BUN/Creatinine Ratio 24.0 H, Glucose 158 H, Calcium 8.1 L, Total Bilirubin 0.50, AST 36, ALT 33, Alkaline Phosphatase 40 L, Total Protein 6.7, Albumin 2.8 L, Globulin 3.9, Albumin/Globulin Ratio 0.7 L Radiography Diagnostic Testing: Radiology Impression Chest X-Ray 06/10/21 00:35 IMPRESSION: Increased finding of bilateral pneumonia. Electronically Signed: Charanjit Carranza MD at 1:12 EDT Tel , Service support , Chest CTA 06/10/21 01:09 IMPRESSION: Extensive bilateral and confluent groundglass opacity concerning for multifocal pneumonia. No finding of pulmonary embolus. Electronically Signed: Charanjit Carranza MD at 1:56 EDT Tel , Service support , Physical Exam Const alert Constitutional Narrative: on BiPAP. HEENT head/scalp atraumatic Head and Scalp: normocephalic Resp Resp Narrative: diminished. bibasilar crackles. Cardio regular rate, regular rhythm, S1 normal heart sound and S2 normal heart sound GI normal to inspection, nondistended, normoactive bowel sounds, soft to palpation, non-tender and non-distended Extremity normal to inspection Skin no rashes or lesions noted Neuro Sensorium / Orientation: awake and alert Assessment & Plan Assessment/Plan (1) Acute respiratory failure with hypoxia: (2) Pneumonia due to COVID-19 virus: (3) COVID-19: PLAN: 1. Acute hypoxic respiratory failure 2/2 COVID-19 on BiPAP, did not tolerate AirVo sick for 5 days prior to arrival pt open to intubation if needed 2. Acute COVID-[address] on dexamethasone and remdesivir ID consultation [facility] previously, no tocilizumab currently available No further hydroxychloroquine nor ivermectin. Discussed with the patient. Advised patient that he is currently on optimal therapy, but he could still decline despite this. 3. VTE prophylaxis: LMWH 4. Prognosis: guarded. Charges/Coding Procedures Hospitalists Procedures: Other Procedure - See Report (non billable rounding as pt admitted after midnight.)
[2021-06-10] MEDS: Enoxaparin 30 MG/0.3 ML Syringe SC ×2 (11:00→23:47)
[2021-06-10] MEDS: Lisinopril 10 MG Tablet PO (11:00)
--- NOTE | 2021-06-10 11:35 | CASEMGMT ---
As per nursing assessment, pt has LW/POA, is medical POA, he will bring papers in. QUEENIE Pereyra
--- NOTE | 2021-06-10 14:19 | CON.PCM.ID_ITS ---
Assessment & Plan Assessment/Plan (1) COVID-19: PLAN: Covid since 06/04/21. Unvaccinated. Counseled him to stop taking ivermectin and hydroxychloroquine due to risks of side effects and lack of benefit. Recommend vaccination in 90 days due to recent monoclonal Ab infusion. On dex and remdesivir, on bipap, will order daily labs. Will follow, thank you (2) Acute respiratory failure with hypoxia: HPI Consult Data Date of Consult: 06/10/21 HPI Narrative HPI Narrative: HAVEN SAGASTUME, is a 70 M who presented 06/10 with sx since 06/04/21 with fever, chills, dry cough, congestion, mild intermittent headache. Covid (+) 06/04, also (+). They are unvaccinated. He has been taking hydroxychloroquine weekly for covid prevention, added ivermectin once he developed symptoms. Sx worsened, came to ED, given dex and outpt monoclonal Ab infusion. getting Abs today. Came back to ED, admitted on dex and remdesivir, feeling a little better today. No change in taste or smell, no n/v/d. Full ROS performed and neg except as noted above. [facility] Medical History Hypertension Prostate CA Home Medications benzonatate [Tessalon Perles] 100 mg PO TID PRN #14 cap 06/08/21 [Rx Last Taken 06/08/21] dexamethasone [Decadron] 6 mg PO DAILY #5 tab 06/08/21 [Rx Last Taken Unknown] lisinopril 10 mg PO DAILY 06/08/21 [History Last Taken Unknown] Allergy/AdvReac Type Severity Reaction Status Date / Time No Known Allergies Allergy Verified 06/09/21 23:49 Family History Other Cancer Surgical History Hx of cholecystectomy Social History Smoking Status: Never smoker Physical Exam Const alert and oriented x3 General Appearance: cooperative Exam Limitations: no limitations HEENT normocephalic and head/scalp atraumatic Eyes PERRL and EOMs intact bilaterally Neck supple and No nodes Resp Auscultation: diminished lung sounds Cardio regular rate and regular rhythm GI normal to inspection, nondistended, normoactive bowel sounds Extremity no clubbing, cyanosis or edema Skin no rashes or lesions noted Neuro CN's II-XII intact bilaterally Lab / Micro Data Result Diagrams: 06/10/21 04:18 06/10/21 04:18 Labs: Laboratory Results - last 24 hr 06/10/21 00:05: WBC 11.4 H, RBC 4.34 L, Hgb 13.2, Hct 39.4 L, MCV 90.8, MCH 30.4, MCHC 33.5, RDW Std Deviation 47.1 H, RDW Coeff of Forest 14.0, Plt Count 121 L, MPV 10.7, Immature Gran % (Auto) 0.600, Neut % (Auto) 91.0 H, Lymph % (Auto) 4.3 L, [place] % (Auto) 4.0, Eos % (Auto) 0.0, Baso % (Auto) 0.1, Absolute Neuts (auto) 10.4 H, Absolute Lymphs (auto) 0.49 L, Nucleated RBC % 0, Differential Comment SCANNED 06/10/21 00:05: Sodium 137, Potassium 4.0, Chloride 105, Carbon Dioxide 24.0, Anion Gap 8, BUN 24 H, Creatinine 1.00, Estim Creat Clear Calc 73.29, Est GFR (MDRD) Af Amer 94, Est GFR (MDRD) Non-Af 78, BUN/Creatinine Ratio 24.0 H, Glucose 207 H, Calcium 8.8, Total Bilirubin 0.40, AST 38 H, ALT 34, Alkaline Phosphatase 46, Troponin I High Sens 22, Total Protein 7.1, Albumin 2.9 L, Globulin 4.2, Albumin/Globulin Ratio 0.7 L 06/10/21 00:05: Lactic Acid 1.7 06/10/21 00:25: D-Dimer Quant (PE/DVT) 1.16 H* 06/10/21 02:45: Procalcitonin 0.64 H 06/10/21 04:18: WBC 11.1 H, RBC 4.18 L, Hgb 12.7 L, Hct 37.9 L, MCV 90.7, MCH 30.4, MCHC 33.5, RDW Std Deviation 46.6 H, RDW Coeff of Forest 14.0, Plt Count 120 L, MPV 10.3, Immature Gran % (Auto) 0.800, Neut % (Auto) 92.9 H, Lymph % (Auto) 2.9 L, [place] % (Auto) 3.3, Eos % (Auto) 0.0, Baso % (Auto) 0.1, Absolute Neuts (auto) 10.3 H, Absolute Lymphs (auto) 0.32 L, Nucleated RBC % 0, Differential Comment SCANNED 06/10/21 04:18: Sodium 137, Potassium 4.2, Chloride 107, Carbon Dioxide 25.0, Anion Gap 5, BUN 21 H, Creatinine 0.88, Estim Creat Clear Calc 83.28, Est GFR (MDRD) Af Amer 110, Est GFR (MDRD) Non-Af 91, BUN/Creatinine Ratio 24.0 H, Glucose 158 H, Calcium 8.1 L, Total Bilirubin 0.50, AST 36, ALT 33, Alkaline Phosphatase 40 L, Total Protein 6.7, Albumin 2.8 L, Globulin 3.9, Albumin/Globulin Ratio 0.7 L Radiology Impression Chest X-Ray 06/10/21 00:35 IMPRESSION: Increased finding of bilateral pneumonia. Electronically Signed: Charanjit Carranza MD at 1:12 EDT Tel , Service support , Chest CTA 06/10/21 01:09 IMPRESSION: Extensive bilateral and confluent groundglass opacity concerning for multifocal pneumonia. No finding of pulmonary embolus. Electronically Signed: Charanjit Carranza MD at 1:56 EDT Tel , Service support ,
--- NOTE | 2021-06-10 15:07 | CASEMGMT ---
GORDO MÉNDEZ called patient's for initial transition planning/care coordination assessment as patient is on continuous Bipap. GORDO MÉNDEZ introduced self and role at [facility]. willing to participate in assessment and is able to answer all questions appropriately. Care providers, pharmacy, and demographics verified. wishes for patient to discharge home, will monitor for needs. states she has no further needs or concerns at this time. CM to follow for discharge planning needs that may arise. PCP: Jamie Specialists: Sekou Chopra Pharmacy: [facility] Insurance: [employer] [facility] Prescription Benefit: Yes Living Will/HPOA: yes Jordyn Syed LNOK: Living Arrangements: Patient lives with in a condo with no steps to enter. Patient is independent at home. Transportation: self/ DME/HHC: Patient has raised toilet at home. NO previous HHC or SNF Disposition Plan: TBD, will monitor course of treatment and progress with care. Possible home oxygen and HHC at discharge. Shoshana PHILLIPS, RN, CM
[2021-06-11] VITALS (34 sets, daily range): BP systolic 112–156; BP diastolic 65–96; PULSE 53–89; RESP 12–35; TEMP 36.5–37; O2SAT 87–97
--- NOTE | 2021-06-11 01:31 | NURSING ---
ASSUMED NURSING CARE @ THIS TIME
[2021-06-11 05:16] LABS: Hematocrit 39.2 % (40-54); Hemoglobin 13.2 g/dL (13.0-16.5); Mean Corp Hgb Conc 33.7 g/dL (32-36); Mean Corpuscular Hgb 30.8 pg (27.0-32.0); Mean Corpuscular Volume 91.4 fL (80-94); Mean Platelet Vol. 10.7 fl (6.2-12.0); Platelet Count 147 K/mm3 (150-450); RBC Distribution Width CV 14.1 % (11.6-14.6); RBC Distribution Width SD 47.7 fl (35.1-43.9); Red Blood Count 4.29 M/mm3 (4.6-6.2); White Blood Count 10.5 K/mm3 (4.4-11.0)
[2021-06-11 06:17] LABS: ALB/GLOB Ratio 0.7 RATIO (0.9-2.4); AST(SGOT) 37 U/L (15-37); Alanine Aminotransfer ALT/SGPT 31 U/L (16-61); Albumin, Serum 2.8 g/dL (3.2-5.0); Alkaline Phosphatase 38 U/L (45-117); Anion Gap 7 (5-15); BUN 28 mg/dL (7-18); BUN/Creat Ratio 34.1 RATIO (10-20); Calcium,Total 8.5 mg/dL (8.5-10.1); Chloride 107 mmol/L (98-107); Creatinine, Serum 0.82 mg/dL (0.70-1.30); EST Glomerular Filtration Rate 98 mL/min (>60); Est Glom Filt Rate - Afr Amer 119 mL/min (>60); Estimated Creatinine Clearance 89.38 ml/min; Globulin 3.8 g/dL (2.2-4.2); Glucose 135 mg/dL (74-106); Potassium 4.2 mmol/L (3.5-5.1); Protein, Total 6.6 g/dL (6.4-8.2); Sodium Level 139 mmol/L (136-145)
--- NOTE | 2021-06-11 08:28 | PCM.PN.INT ---
Assessment & Plan Assessment/Plan (1) Pneumonia due to COVID-19 virus: (2) Acute respiratory failure with hypoxia: PLAN: RECOMMENDATIONS: 1. Continue Decadron and Remdesivir therapy 2. Wean oxygen as tolerated. Continue BiPAP with sleep 3. Potentially attempt Airvo to facilitate p.o. nutrition. Anticipate only brief breaks off of BiPAP 4. Encourage incentive spirometer and out of bed as tolerated 5. Diuretic challenge today IMPRESSIONS: 1. Acute hypoxic respiratory failure secondary to COVID-19 pneumonia Patient did receive monoclonal antibodies, but now qualifies for remdesivir and Decadron. We will continue with BiPAP therapy for now, but may attempt Airvo to facilitate p.o. nutrition. Anticipate patient will only be able to tolerate brief breaks from BiPAP. We will challenge with Lasix therapy. Continue with Mucinex. 2. Hypertension/obesity/advanced age/inappropriate hydroxychloroquine use Complicates care, management, recovery and prognosis. Okay to continue lisinopril for now. We will have to watch renal function closely. No Plaquenil or ivermectin is indicated. 3. CODE STATUS Various options for CODE STATUS were reviewed with the patient. After review of all options, patient has agreed to a full CODE STATUS. Subjective Subjective Patient did okay overnight. Patient was able to tolerate Airvo for short period of time, but stopped on BiPAP. Patient denies any chest pain. Patient continues to have a nonproductive cough. Objective Data Objective Data Vital Signs: Vital Signs Temp Pulse Resp BP Pulse Ox 37.0 C 63 22 H 136/88 H 91 06/11/21 00:00 06/11/21 07:18 06/11/21 07:38 06/11/21 05:00 06/11/21 06:00 Oxygen Flow Rate (L/min) 60 Oxygen Delivery Method Bi-pap Weight: 94.43 kg Body Mass Index (BMI) 29.4 Intake & Output: Intake and Output for Last 24 Hours 06/09/21 06/10/21 06/11/21 23:59 23:59 23:59 Intake Total 910 / 910 350 / 350 Output Total 1500 / 1500 450 / 450 Balance -590 / -590 -100 / -100 Lab / Micro Data Result Diagrams: 06/11/21 04:58 06/11/21 04:58 Labs: Laboratory Results - last 24 hr 06/11/21 04:58: WBC 10.5, RBC 4.29 L, Hgb 13.2, Hct 39.2 L, MCV 91.4, MCH 30.8, MCHC 33.7, RDW Std Deviation 47.7 H, RDW Coeff of Forest 14.1, Plt Count 147 L, MPV 10.7 06/11/21 04:58: Sodium 139, Potassium 4.2, Chloride 107, Carbon Dioxide 25.0, Anion Gap 7, BUN 28 H, Creatinine 0.82, Estim Creat Clear Calc 89.38, Est GFR (MDRD) Af Amer 119, Est GFR (MDRD) Non-Af 98, BUN/Creatinine Ratio 34.1 H, Glucose 135 H, Calcium 8.5, Total Bilirubin 0.50, AST 37, ALT 31, Alkaline Phosphatase 38 L, Total Protein 6.6, Albumin 2.8 L, Globulin 3.8, Albumin/Globulin Ratio 0.7 L Physical Exam Narrative Good BiPAP synchrony Const alert, oriented x3 and no apparent distress General Appearance: cooperative, well developed and on BiPAP Nutritional Appearance: obese HEENT normocephalic, head/scalp atraumatic and moist oral mucous membranes Eyes PERRL and EOMs intact bilaterally Neck full ROM and no lymphadenopathy Chest inspection of chest normal Resp no use of accessory muscles Effort and Inspection: symmetric chest movement Auscultation: diminished lung sounds; Negative for rales, rhonchi or wheezes Percussion: Negative for dullness Cardio regular rate, regular rhythm, S1 normal heart sound, S2 normal heart sound, no murmurs, no rub and no gallops GI normal to inspection, nondistended, normoactive bowel sounds no CVA tenderness Extremity no clubbing, cyanosis or edema Skin no rashes or lesions noted Neuro oriented x3, CN's II-XII intact bilaterally, moves all extremities and no focal motor deficits Psych cooperative and affect normal Charges/Coding Visit Charges Inpatient E&M: 49049 Subs Hosp L3
[2021-06-11] MEDS: guaiFENesin 1,200 MG Tablet 1200 MG PO ×2 (08:52→22:06)
[2021-06-11] MEDS: Lisinopril 10 MG Tablet PO (08:52)
[2021-06-11] MEDS: Enoxaparin 30 MG/0.3 ML Syringe SC ×2 (08:53→22:06)
[2021-06-11] MEDS: 0.9% Saline Lock 10 ML Syringe IV (08:53)
[2021-06-11] MEDS: Acetaminophen 325 MG Tablet 650 MG PO (08:54)
[2021-06-11] MEDS: dexAMETHasone 10 MG/ML Vial 6 MG IV (08:57)
[2021-06-11] MEDS: Furosemide 20 MG/2 ML VIAL IV (08:58)
--- NOTE | 2021-06-11 10:49 | PCM.PN.HOSP ---
Subjective Subjective Feeling better. Tolerating Airvo. Objective Data Objective Data Vital Signs: Vital Signs Temp Pulse Resp BP Pulse Ox 37.0 C 89 27 H 131/76 H 97 06/11/21 00:00 06/11/21 10:00 06/11/21 10:00 06/11/21 10:00 06/11/21 10:00 Oxygen Flow Rate (L/min) 60 Oxygen Delivery Method Airvo Weight: 94.43 kg Body Mass Index (BMI) 29.4 Intake & Output: Intake and Output for Last 24 Hours 06/09/21 06/10/21 06/11/21 23:59 23:59 23:59 Intake Total 910 / 910 470 / 470 Output Total 1500 / 1500 450 / 450 Balance -590 / -590 Lab / Micro Data Result Diagrams: 06/11/21 04:58 06/11/21 04:58 Labs: Laboratory Results - last 24 hr 06/11/21 04:58: WBC 10.5, RBC 4.29 L, Hgb 13.2, Hct 39.2 L, MCV 91.4, MCH 30.8, MCHC 33.7, RDW Std Deviation 47.7 H, RDW Coeff of Forest 14.1, Plt Count 147 L, MPV 10.7 06/11/21 04:58: Sodium 139, Potassium 4.2, Chloride 107, Carbon Dioxide 25.0, Anion Gap 7, BUN 28 H, Creatinine 0.82, Estim Creat Clear Calc 89.38, Est GFR (MDRD) Af Amer 119, Est GFR (MDRD) Non-Af 98, BUN/Creatinine Ratio 34.1 H, Glucose 135 H, Calcium 8.5, Total Bilirubin 0.50, AST 37, ALT 31, Alkaline Phosphatase 38 L, Total Protein 6.6, Albumin 2.8 L, Globulin 3.8, Albumin/Globulin Ratio 0.7 L Physical Exam Narrative Up in chair on Airvo. No respiratory distress. No conversatoinal dyspnea. Resp no retractions, no use of accessory muscles and clear to auscultation bilaterally Cardio regular rate, regular rhythm, S1 normal heart sound and S2 normal heart sound GI normal to inspection, nondistended, normoactive bowel sounds Assessment & Plan Assessment/Plan (1) Acute respiratory failure with hypoxia: (2) Pneumonia due to COVID-19 virus: (3) COVID-19: PLAN: 1. Acute hypoxic respiratory failure 2/2 COVID-19 today, tolerating Airvo sick for 5 days prior to arrival pt open to intubation if needed received 1x dose of furosemide. 2. Acute COVID-[address] on dexamethasone and remdesivir ID consultation [facility] previously, no tocilizumab currently available No further hydroxychloroquine nor ivermectin. Discussed with the patient. 3. VTE prophylaxis: LMWH 4. Prognosis: guarded. Charges/Coding Visit Charges Inpatient E&M: 87885 Subs Hosp L2
[2021-06-12] VITALS (35 sets, daily range): BP systolic 93–156; BP diastolic 53–132; PULSE 47–92; RESP 12–35; TEMP 36.3–37.1; O2SAT 88–475
[2021-06-12] MEDS: guaiFENesin 10 ML UDC (200MG/10ML) PO ×2 (03:20→20:08)
[2021-06-12 04:00] LABS: Hematocrit 39.6 % (40-54); Hemoglobin 13.4 g/dL (13.0-16.5); Mean Corp Hgb Conc 33.8 g/dL (32-36); Mean Corpuscular Hgb 30.6 pg (27.0-32.0); Mean Corpuscular Volume 90.4 fL (80-94); Mean Platelet Vol. 10.9 fl (6.2-12.0); Platelet Count 164 K/mm3 (150-450); RBC Distribution Width SD 46.5 fl (35.1-43.9); Red Blood Count 4.38 M/mm3 (4.6-6.2); White Blood Count 10.4 K/mm3 (4.4-11.0)
[2021-06-12 04:26] LABS: ALB/GLOB Ratio 0.7 RATIO (0.9-2.4); AST(SGOT) 41 U/L (15-37); Alanine Aminotransfer ALT/SGPT 36 U/L (16-61); Albumin, Serum 2.8 g/dL (3.2-5.0); Alkaline Phosphatase 43 U/L (45-117); Anion Gap 9 (5-15); BUN 31 mg/dL (7-18); BUN/Creat Ratio 37.3 RATIO (10-20); Calcium,Total 8.3 mg/dL (8.5-10.1); Chloride 104 mmol/L (98-107); Creatinine, Serum 0.83 mg/dL (0.70-1.30); EST Glomerular Filtration Rate 96 mL/min (>60); Est Glom Filt Rate - Afr Amer 117 mL/min (>60); Globulin 4.1 g/dL (2.2-4.2); Glucose 139 mg/dL (74-106); Potassium 4.2 mmol/L (3.5-5.1); Protein, Total 6.9 g/dL (6.4-8.2); Sodium Level 138 mmol/L (136-145)
--- NOTE | 2021-06-12 08:00 | PCM.PN.INT ---
Assessment & Plan Assessment/Plan (1) Pneumonia due to COVID-19 virus: (2) Acute respiratory failure with hypoxia: PLAN: RECOMMENDATIONS: 1. Continue Decadron and Remdesivir therapy 2. Wean oxygen as tolerated. Continue BiPAP with sleep 3. Potentially attempt Airvo to facilitate p.o. nutrition 4. Encourage incentive spirometer and out of bed as tolerated 5. Increase diuretic challenge today IMPRESSIONS: 1. Acute hypoxic respiratory failure secondary to COVID-19 pneumonia Patient did receive monoclonal antibodies, but now qualifies for remdesivir and Decadron. Patient should continue BiPAP with sleep. Okay to use Airvo during the day to facilitate p.o. nutrition. We will challenge with Lasix therapy. Continue with Mucinex. Will use melatonin to facilitate sleep. If this is unsuccessful, Seroquel would be a reasonable alternative/augmentative therapy 2. Hypertension/obesity/advanced age/inappropriate hydroxychloroquine use Complicates care, management, recovery and prognosis. Okay to continue lisinopril for now. We will have to watch renal function closely. No Plaquenil or ivermectin is indicated. 3. CODE STATUS Various options for CODE STATUS were reviewed with the patient. After review of all options, patient has agreed to a full CODE STATUS. Subjective Subjective Patient doing okay this morning from a hemodynamic standpoint. Patient reports he feels subjectively worse compared to yesterday. Patient feels that he overdid it with trying to use the incentive spirometer and this is led to increased dyspnea today. Patient also reports that he slept poorly. Objective Data Objective Data Vital Signs: Vital Signs Temp Pulse Resp BP Pulse Ox 36.6 C 60 35 H 127/63 H 475 06/12/21 04:00 06/12/21 07:25 06/12/21 07:25 06/12/21 07:00 06/12/21 07:25 Oxygen Flow Rate (L/min) 60 Oxygen Delivery Method Bi-pap Weight: 94.43 kg Body Mass Index (BMI) 29.4 Intake & Output: Intake and Output for Last 24 Hours 06/10/21 06/11/21 06/12/21 23:59 23:59 23:59 Intake Total 910 / 910 2080 / 2330 910 / 910 Output Total 1500 / 1500 1250 / 1525 600 / 600 Balance -590 / -590 830 / 805 310 / 310 Lab / Micro Data Result Diagrams: 06/12/21 03:40 06/12/21 03:40 Labs: Laboratory Results - last 24 hr 06/12/21 03:40: WBC 10.4, RBC 4.38 L, Hgb 13.4, Hct 39.6 L, MCV 90.4, MCH 30.6, MCHC 33.8, RDW Std Deviation 46.5 H, RDW Coeff of Forest 14.0, Plt Count 164, MPV 10.9 06/12/21 03:40: Sodium 138, Potassium 4.2, Chloride 104, Carbon Dioxide 25.0, Anion Gap 9, BUN 31 H, Creatinine 0.83, Estim Creat Clear Calc 88.30, Est GFR (MDRD) Af Amer 117, Est GFR (MDRD) Non-Af 96, BUN/Creatinine Ratio 37.3 H, Glucose 139 H, Calcium 8.3 L, Total Bilirubin 0.60, AST 41 H, ALT 36, Alkaline Phosphatase 43 L, Total Protein 6.9, Albumin 2.8 L, Globulin 4.1, Albumin/Globulin Ratio 0.7 L Micro: Microbiology 06/10/21 00:25 Blood Culture (Wb) - Right Forearm Blood Culture - Preliminary No growth in 48 hours. 06/10/21 00:05 Blood Culture (Wb) - Left Wrist Blood Culture - Preliminary No growth in 48 hours. Physical Exam Narrative Tolerating Airvo. Appears more tired than dyspneic Const alert, oriented x3 and no apparent distress General Appearance: cooperative, well developed and on BiPAP Nutritional Appearance: obese HEENT normocephalic, head/scalp atraumatic and moist oral mucous membranes Eyes PERRL and EOMs intact bilaterally Neck full ROM and no lymphadenopathy Chest inspection of chest normal Resp no use of accessory muscles Effort and Inspection: symmetric chest movement Auscultation: diminished lung sounds; Negative for rales, rhonchi or wheezes Percussion: Negative for dullness Cardio regular rate, regular rhythm, S1 normal heart sound, S2 normal heart sound, no murmurs, no rub and no gallops GI normal to inspection, nondistended, normoactive bowel sounds no CVA tenderness Extremity no clubbing, cyanosis or edema Skin no rashes or lesions noted Neuro oriented x3, CN's II-XII intact bilaterally, moves all extremities and no focal motor deficits Psych cooperative and affect normal Charges/Coding Visit Charges Inpatient E&M: 33788 Subs Hosp L3
[2021-06-12] MEDS: Furosemide 40 MG/4 ML Vial IV (08:41)
[2021-06-12] MEDS: Lisinopril 10 MG Tablet PO (08:41)
[2021-06-12] MEDS: Enoxaparin 30 MG/0.3 ML Syringe SC ×2 (08:41→20:08)
[2021-06-12] MEDS: dexAMETHasone 10 MG/ML Vial 6 MG IV (08:41)
[2021-06-12] MEDS: guaiFENesin 1,200 MG Tablet 1200 MG PO ×2 (08:42→20:08)
[2021-06-12] MEDS: 0.9% Saline Lock 10 ML Syringe IV (08:42)
--- NOTE | 2021-06-12 12:29 | PN.HOSP_ITS ---
Subjective Subjective Breathing better overall, but FiO2 increased. Objective Data Objective Data Vital Signs: Vital Signs Temp Pulse Resp BP Pulse Ox 37.1 C 67 26 H 114/85 H 92 06/12/21 08:00 06/12/21 11:00 06/12/21 11:00 06/12/21 11:00 06/12/21 11:00 Oxygen Flow Rate (L/min) 60 Oxygen Delivery Method Airvo Weight: 94.43 kg Body Mass Index (BMI) 29.4 Intake & Output: Intake and Output for Last 24 Hours 06/10/21 06/11/21 06/12/21 23:59 23:59 23:59 Intake Total 910 / 910 2080 / 2330 1150 / 1150 Output Total 1500 / 1500 1250 / 1525 1400 / 1400 Balance -590 / -590 830 / 805 -250 / -250 Lab / Micro Data Result Diagrams: 06/12/21 03:40 06/12/21 03:40 Labs: Laboratory Results - last 24 hr 06/12/21 03:40: WBC 10.4, RBC 4.38 L, Hgb 13.4, Hct 39.6 L, MCV 90.4, MCH 30.6, MCHC 33.8, RDW Std Deviation 46.5 H, RDW Coeff of Forest 14.0, Plt Count 164, MPV 10.9 06/12/21 03:40: Sodium 138, Potassium 4.2, Chloride 104, Carbon Dioxide 25.0, Anion Gap 9, BUN 31 H, Creatinine 0.83, Estim Creat Clear Calc 88.30, Est GFR (MDRD) Af Amer 117, Est GFR (MDRD) Non-Af 96, BUN/Creatinine Ratio 37.3 H, Glucose 139 H, Calcium 8.3 L, Total Bilirubin 0.60, AST 41 H, ALT 36, Alkaline Phosphatase 43 L, Total Protein 6.9, Albumin 2.8 L, Globulin 4.1, Albumin/Gl obulin Ratio 0.7 L Micro: Microbiology 06/10/21 00:25 Blood Culture (Wb) - Right Forearm Blood Culture - Preliminary No growth in 48 hours. 06/10/21 00:05 Blood Culture (Wb) - Left Wrist Blood Culture - Preliminary No growth in 48 hours. Physical Exam Narrative up in chair on Airvo. No respiratory distress. No conversational dyspnea. Const alert Neck no lymphadenopathy Resp normal respiratory effort, no retractions and no use of accessory muscles Cardio regular rate, regular rhythm, S1 normal heart sound and S2 normal heart sound GI normal to inspection, nondistended, normoactive bowel sounds, soft to palpation, non-tender and non-distended Extremity normal to inspection and full ROM Assessment & Plan Assessment/Plan (1) Acute respiratory failure with hypoxia: (2) Pneumonia due to COVID-19 virus: (3) COVID-19: PLAN: 1. Acute hypoxic respiratory failure 2/2 COVID-19 today, tolerating Airvo sick for 5 days prior to arrival pt open to intubation if needed received 2x dose of furosemide. 2. Acute COVID-[address] unvaccinated, but may be open to vaccination at a later point. on dexamethasone and remdesivir ID consultation [facility] previously, no tocilizumab currently available No further hydroxychloroquine nor ivermectin. Discussed with the patient. 3. VTE prophylaxis: LMWH Charges/Coding Visit Charges Inpatient E&M: 17414 Subs Hosp L2
[2021-06-12] MEDS: NYSTATIN 500,000 UNIT/5 ML UDC 500000 UNIT PO ×3 (15:18→20:08)
--- NOTE | 2021-06-12 19:57 | CPS ---
decreased flow to 50 l- angelito well
[2021-06-12] MEDS: Acetaminophen 325 MG Tablet 650 MG PO (20:08)
[2021-06-12] MEDS: MELATONIN 10 MG TABLET PO (20:08)
[2021-06-13] VITALS (34 sets, daily range): BP systolic 87–134; BP diastolic 50–86; PULSE 46–81; RESP 12–28; TEMP 36.2–36.8; O2SAT 86–98
[2021-06-13] MEDS: guaiFENesin 10 ML UDC (200MG/10ML) PO (04:26)
--- NOTE | 2021-06-13 04:45 | NURSING ---
PT TRANSITIONED FROM BIPAP TO AIRVO. AFTER 20M, PT'S SPO2 SATS AT 87-89% ON 50L@93%. RT NOTIFIED OF NEED TO CHANGE AIRVO SETTINGS.
[2021-06-13 04:52] LABS: ALB/GLOB Ratio 0.7 RATIO (0.9-2.4); AST(SGOT) 34 U/L (15-37); Alanine Aminotransfer ALT/SGPT 44 U/L (16-61); Albumin, Serum 2.9 g/dL (3.2-5.0); Alkaline Phosphatase 47 U/L (45-117); Anion Gap 7 (5-15); BUN 38 mg/dL (7-18); BUN/Creat Ratio 38.6 RATIO (10-20); Calcium,Total 8.9 mg/dL (8.5-10.1); Chloride 104 mmol/L (98-107); Creatinine, Serum 0.98 mg/dL (0.70-1.30); EST Glomerular Filtration Rate 79 mL/min (>60); Est Glom Filt Rate - Afr Amer 96 mL/min (>60); Estimated Creatinine Clearance 74.78 ml/min; Globulin 4.4 g/dL (2.2-4.2); Glucose 157 mg/dL (74-106); Magnesium 2.3 mg/dL (1.6-2.6); Potassium 4.2 mmol/L (3.5-5.1); Protein, Total 7.3 g/dL (6.4-8.2); Sodium Level 138 mmol/L (136-145)
[2021-06-13 04:56] LABS: Hematocrit 42.8 % (40-54); Hemoglobin 14.5 g/dL (13.0-16.5); Mean Corp Hgb Conc 33.9 g/dL (32-36); Mean Corpuscular Hgb 30.5 pg (27.0-32.0); Mean Corpuscular Volume 89.9 fL (80-94); Mean Platelet Vol. 11.1 fl (6.2-12.0); Platelet Count 189 K/mm3 (150-450); RBC Distribution Width CV 13.8 % (11.6-14.6); Red Blood Count 4.76 M/mm3 (4.6-6.2); White Blood Count 10.1 K/mm3 (4.4-11.0)
--- NOTE | 2021-06-13 06:43 | PCM.PN.INT ---
Assessment & Plan Assessment/Plan (1) Acute respiratory failure with hypoxia: (2) COVID-19: PLAN: RECOMMENDATIONS: 1. Continue remdesivir and Decadron to complete treatment courses. 2. Continue twice daily Lovenox. 3. Wean FiO2 to maintain oxygen saturations at or above 90%. 4. Encourage incentive spirometer use and mobilize patient as tolerated. 5. Maintain euvolemic state. IMPRESSIONS: 1. Acute hypoxic respiratory failure secondary to COVID-19 pneumonia The patient presented to the hospital with worsening respiratory status despite having received monoclonal antibody therapy. Therefore, the patient was started on remdesivir and will be continued on Decadron to complete a 10-day treatment course. He will be continued on a combination of heated high flow and BiPAP, as tolerated to maintain oxygen saturations at or above 90%. Encourage incentive spirometer use and mobilize patient as tolerated. Maintain euvolemic state with as needed diuretic therapy. 2. Hypertension/obesity/advanced age/inappropriate hydroxychloroquine use Complicates care, management, recovery and prognosis. Okay to continue lisinopril for now. This note was generated with [employer] dictation software. It may contain incorrect words, spelling, and punctuation that were not noted in checking the note before signing. Subjective Subjective The patient was seen and examined at the bedside this morning. Events from the last 24 hours have been reviewed. The patient is currently afebrile, hemodynamically stable and maintaining appropriate oxygen saturations on Airvo heated high flow with an FiO2 requirement of 88% and flow rate of 55 L/min. The patient remains on remdesivir and Decadron. Objective Data Objective Data The patient's most recent lab work, culture data and imaging studies have all been personally reviewed. Coronavirus PCR was positive on June 04. Vital Signs: Vital Signs Temp Pulse Resp BP Pulse Ox 97.9 F 58 L 18 116/86 H 97 06/13/21 05:00 06/13/21 06:00 06/13/21 06:00 06/13/21 06:00 06/13/21 06:00 Oxygen Flow Rate (L/min) 55 Oxygen Delivery Method Airvo Weight: 94.43 kg Body Mass Index (BMI) 29.4 Intake & Output: Intake and Output for Last 24 Hours 06/11/21 06/12/21 06/13/21 23:59 23:59 23:59 Intake Total 2080 / 2330 1830 / 1830 250 / 250 Output Total 1250 / 1525 1600 / 1600 500 / 500 Balance 830 / 805 230 / 230 -250 / -250 Lab / Micro Data Attestation: I reviewed the patient's lab results. Result Diagrams: 06/13/21 04:25 06/13/21 04:25 Labs: Laboratory Results - last 24 hr 06/13/21 04:25: WBC 10.1, RBC 4.76, Hgb 14.5, Hct 42.8, MCV 89.9, MCH 30.5, MCHC 33.9, RDW Std Deviation 46.0 H, RDW Coeff of Forest 13.8, Plt Count 189, MPV 11.1 06/13/21 04:25: Sodium 138, Potassium 4.2, Chloride 104, Carbon Dioxide 27.0, Anion Gap 7, BUN 38 H, Creatinine 0.98, Estim Creat Clear Calc 74.78, Est GFR (MDRD) Af Amer 96, Est GFR (MDRD) Non-Af 79, BUN/Creatinine Ratio 38.6 H, Glucose 157 H, Calcium 8.9, Magnesium 2.3, Total Bilirubin 0.70, AST 34, ALT 44, Alkaline Phosphatase 47, Total Protein 7.3, Albumin 2.9 L, Globulin 4.4 H, Albumin/Globulin Ratio 0.7 L Micro: Microbiology 06/10/21 00:25 Blood Culture (Wb) - Right Forearm Blood Culture - Preliminary No growth in 48 hours. 06/10/21 00:05 Blood Culture (Wb) - Left Wrist Blood Culture - Preliminary No growth in 48 hours. Physical Exam Narrative Tolerating Airvo. Const alert, oriented x3 and no apparent distress General Appearance: cooperative and well developed Nutritional Appearance: obese HEENT normocephalic, head/scalp atraumatic and moist oral mucous membranes Eyes PERRL, EOMs intact bilaterally and conjunctivae normal Neck supple General: trachea midline Resp no use of accessory muscles Effort and Inspection: symmetric chest movement Auscultation: diminished lung sounds; Negative for rales, rhonchi or wheezes Cardio regular rate, regular rhythm, S1 normal heart sound, S2 normal heart sound and no murmurs GI normal to inspection, nondistended, normoactive bowel sounds Extremity no clubbing, cyanosis or edema Skin no rashes or lesions noted Neuro oriented x3, CN's II-XII intact bilaterally, moves all extremities and no focal motor deficits Psych cooperative and affect normal Charges/Coding Visit Charges Inpatient E&M: 36952 Subs Hosp L3
[2021-06-13] MEDS: dexAMETHasone 10 MG/ML Vial 6 MG IV (08:48)
[2021-06-13] MEDS: guaiFENesin 1,200 MG Tablet 1200 MG PO ×2 (08:48→21:10)
[2021-06-13] MEDS: Enoxaparin 30 MG/0.3 ML Syringe SC ×2 (08:48→21:11)
[2021-06-13] MEDS: NYSTATIN 500,000 UNIT/5 ML UDC 500000 UNIT PO ×4 (08:49→21:11)
[2021-06-13] MEDS: Lisinopril 10 MG Tablet PO (08:49)
--- NOTE | 2021-06-13 13:55 | CHAPLAIN ---
Type of Pastoral Visit ___ Initial Visit ___ Follow-up Visit ___ On-call Visit ___ General Patient Visit ___ Spiritual Assessment ___ Family Conference ___ Bereavement ___ Rapid Response ___ Code Blue _x__ Other (describe below) Pastoral Care Referral From _x__ Patient ___ Family ___ Nurse ___ Physician ___ Criminal Defense Lawyer ___ Manager Endoscopy ___ Other (describe below) Sacrament/Intervention ___ Active listening ___ Anointing ___ Oriental Orthodox ___ Bereavement ___ Communion ___ Maisha exploration ___ ___ Life review _x__ Prayer ___ Reconciliation ___ Sacrament of Sick _x__ Supportive presence ___ Wedding ___ Other (describe below) Pastoral Comments phone call made into isolation room; patient answers phone and welcomes the support and prayer; pt unable to talk long as it wears me down but expresses thanks for the concern and call; pt states he is slowly making some improvements
--- NOTE | 2021-06-13 14:15 | CASEMGMT ---
GORDO MÉNDEZ called patient's to inquire where patient had covid testing completed. Patient had covid testing done on 06/04/21 at [facility] on [address]
--- NOTE | 2021-06-13 14:41 | PN.HOSP_ITS ---
Subjective Subjective Patient anne-marie and examined. He was on AirVo at time of review and had no active complaints. He still does remain short of breath. Review of systems is otherwise negative. He remains tachypneic. Objective Data Objective Data Vital Signs: Vital Signs Temp Pulse Resp BP Pulse Ox 97.8 F 67 23 H 105/59 L 96 06/13/21 12:00 06/13/21 13:00 06/13/21 13:00 06/13/21 13:00 06/13/21 13:00 Oxygen Flow Rate (L/min) 55 Oxygen Delivery Method Airvo Weight: 208 lb 2.92 oz Body Mass Index (BMI) 29.4 Intake & Output: Intake and Output for Last 24 Hours 06/11/21 06/12/21 06/13/21 23:59 23:59 23:59 Intake Total 2080 / 2330 1830 / 1830 490 / 490 Output Total 1250 / 1525 1600 / 1600 900 / 900 Balance 830 / 805 230 / 230 -410 / -410 Lab / Micro Data Result Diagrams: 06/13/21 04:25 06/13/21 04:25 Labs: Laboratory Results - last 24 hr 06/13/21 04:25: WBC 10.1, RBC 4.76, Hgb 14.5, Hct 42.8, MCV 89.9, MCH 30.5, MCHC 33.9, RDW Std Deviation 46.0 H, RDW Coeff of [place] 13.8, Plt Count 189, MPV 11.1 06/13/21 04:25: Sodium 138, Potassium 4.2, Chloride 104, Carbon Dioxide 27.0, Anion Gap 7, BUN 38 H, Creatinine 0.98, Estim Creat Clear Calc 74.78, Est GFR (MDRD) Af Amer 96, Est GFR (MDRD) Non-Af 79, BUN/Creatinine Ratio 38.6 H, Glucose 157 H, Calcium 8.9, Magnesium 2.3, Total Bilirubin 0.70, AST 34, ALT 44, Alkaline Phosphatase 47, Total Protein 7.3, Albumin 2.9 L, Globulin 4.4 H, Albumin/Globulin Ratio 0.7 L Micro: Microbiology 06/10/21 00:25 Blood Culture (Wb) - Right Forearm Blood Culture - Preliminary No growth in 48 hours. 06/10/21 00:05 Blood Culture (Wb) - Left Wrist Blood Culture - Preliminary No growth in 48 hours. Physical Exam Const alert, oriented x3 and no apparent distress Exam Limitations: no limitations HEENT head/scalp atraumatic, moist oral mucous membranes and oropharynx normal Head and Scalp: normocephalic Eyes PERRL, EOMs intact bilaterally and conjunctivae normal Neck no lymphadenopathy and supple Resp Resp Narrative: diminished breath sounds bibasally, no wheezes or crackles. On AirVo Cardio regular rate, regular rhythm, S1 normal heart sound, S2 normal heart sound and no murmurs GI normal to inspection, nondistended, normoactive bowel sounds, soft to palpation, non-tender and non-distended Extremity normal to inspection, full ROM and no clubbing, cyanosis or edema Peripheral Pulses: Yes pulses 2+ throughout Skin no rashes or lesions noted Neuro oriented x3, CN's II-XII intact bilaterally and moves all extremities Sensorium / Orientation: awake and alert Psych affect normal Assessment & Plan Assessment/Plan (1) COVID-19: (2) Acute respiratory failure with hypoxia: (3) Pneumonia due to COVID-19 virus: PLAN: #Acute hypoxic respiratory failure due to COVID 19 infection * patient remains on AirVO * critical care on board * on remdesivir and decadron. * ID consulted. * tocilizumab not available * patient was taking ivermectin and hydroxychloroquine due to risk of side effects and lack of benefit. * has also received monoclonal antibody infusion recently. * also being diuresed with IV lasix * * #DVT prophylaxis: lovenox 30mg bid. Charges/Coding Visit Charges Inpatient E&M: 96410 [facility] Hosp L3
[2021-06-13] MEDS: Pantoprazole Sodium 20 MG Tablet PO (17:05)
[2021-06-13] MEDS: 0.9% Saline Lock 10 ML Syringe IV (21:10)
[2021-06-13] MEDS: MELATONIN 10 MG TABLET PO (21:12)
[2021-06-14] VITALS (29 sets, daily range): BP systolic 104–146; BP diastolic 54–122; PULSE 55–88; RESP 12–30; TEMP 35.6–37.3; O2SAT 86–97
[2021-06-14] MEDS: guaiFENesin 10 ML UDC (200MG/10ML) PO ×3 (02:54→20:50)
[2021-06-14 03:09] LABS: Absolute Neutrophil Count 8.5 X10^3/uL (2.0-7.7); Basophil# 0.02 X10^3/uL; Basophil% 0.2 % (0-1); Hematocrit 41.4 % (40-54); Hemoglobin 13.8 g/dL (13.0-16.5); Lymphocyte % 7.9 % (19-41); Mean Corp Hgb Conc 33.3 g/dL (32-36); Mean Corpuscular Hgb 30.3 pg (27.0-32.0); Mean Platelet Vol. 10.2 fl (6.2-12.0); Monocyte# 0.63 X10^3/uL; Monocyte% 6.2 % (0-10); NRBC Flagged by Analyzer 0 % (0-5); Neutrophil # 8.53 X10^3/uL (2.7-7.7); Neutrophil % 83.8 % (47-70); Platelet Count 194 K/mm3 (150-450); RBC Distribution Width CV 13.7 % (11.6-14.6); RBC Distribution Width SD 46.4 fl (35.1-43.9); Red Blood Count 4.55 M/mm3 (4.6-6.2); White Blood Count 10.2 K/mm3 (4.4-11.0)
[2021-06-14 03:20] LABS: Anion Gap 5 (5-15); BUN 37 mg/dL (7-18); BUN/Creat Ratio 41.4 RATIO (10-20); Calcium,Total 8.8 mg/dL (8.5-10.1); Chloride 104 mmol/L (98-107); Creatinine, Serum 0.89 mg/dL (0.70-1.30); EST Glomerular Filtration Rate 89 mL/min (>60); Est Glom Filt Rate - Afr Amer 107 mL/min (>60); Estimated Creatinine Clearance 82.35 ml/min; Glucose 151 mg/dL (74-106); Potassium 3.9 mmol/L (3.5-5.1); Sodium Level 138 mmol/L (136-145)
[2021-06-14] MEDS: 0.9% Saline Lock 10 ML Syringe IV (06:18)
[2021-06-14] MEDS: Calcium Carbonate 500 MG Tablet 1000 MG PO (06:21)
--- NOTE | 2021-06-14 07:23 | PN.CC_ITS ---
Assessment & Plan Assessment/Plan (1) Acute respiratory failure with hypoxia: (2) COVID-19: PLAN: RECOMMENDATIONS: 1. Continue Decadron to complete treatment course. 2. Continue twice daily Lovenox. 3. Wean FiO2 to maintain oxygen saturations at or above 90%. 4. Encourage incentive spirometer use and mobilize patient as tolerated. 5. Maintain euvolemic state. IMPRESSIONS: 1. Acute hypoxic respiratory failure secondary to COVID-19 pneumonia The patient presented to the hospital with worsening respiratory status despite having received monoclonal antibody therapy. The patient has since completed a treatment course of remdesivir and will remain on Decadron to complete a 10-day course. He will be continued on a combination of heated high flow and BiPAP, as tolerated to maintain oxygen saturations at or above 90%. Encourage incentive spirometer use and mobilize patient as tolerated. Maintain euvolemic state with as needed diuretic therapy. 2. Hypertension/obesity/advanced age/inappropriate hydroxychloroquine use Complicates care, management, recovery and prognosis. Okay to continue lisino pril for now. This note was generated with [employer] dictation software. It may contain incorrect words, spelling, and punctuation that were not noted in checking the note before signing. Subjective Subjective The patient was seen and examined at the bedside this morning. Events from the last 24 hours have been reviewed. The patient is currently afebrile, hemodynamically stable and maintaining appropriate oxygen saturations on Airvo heated high flow with an FiO2 requirement of 90%. The patient's respiratory status is quite tenuous. The patient is currently documented to be overall net +460 mL for the hospital admission. The patient has completed his treatment course of remdesivir and remains on Decadron and Lovenox. Objective Data Objective Data The patient's most recent lab work, culture data and imaging studies have all been personally reviewed. Coronavirus PCR was positive on June 04. Vital Signs: Vital Signs Temp Pulse Resp BP Pulse Ox 98.7 F 75 29 H 138/62 H 92 06/14/21 03:00 06/14/21 05:00 06/14/21 05:00 06/14/21 05:00 06/14/21 05:00 Oxygen Flow Rate (L/min) 55 Oxygen Delivery Method Bi-pap Weight: 99.1 kg Body Mass Index (BMI) 29.4 Intake & Output: Intake and Output for Last 24 Hours 06/12/21 06/13/21 06/14/21 23:59 23:59 23:59 Intake Total 1830 / 1830 1340 / 1340 100 / 100 Output Total 1600 / 1600 1450 / 1450 Balance 230 / 230 -110 / -110 100 / 100 Lab / Micro Data Attestation: I reviewed the patient's lab results. Result Diagrams: 06/14/21 03:00 06/14/21 03:00 Labs: Laboratory Results - last 24 hr 06/14/21 03:00: Sodium 138, Potassium 3.9, Chloride 104, Carbon Dioxide 29.0, Anion Gap 5, BUN 37 H, Creatinine 0.89, Estim Creat Clear Calc 82.35, Est GFR (MDRD) Af Amer 107, Est GFR (MDRD) Non-Af 89, BUN/Creatinine Ratio 41.4 H, Glucose 151 H, Calcium 8.8 06/14/21 03:00: WBC 10.2, RBC 4.55 L, Hgb 13.8, Hct 41.4, MCV 91.0, MCH 30.3, MCHC 33.3, RDW Std Deviation 46.4 H, RDW Coeff of [place] 13.7, Plt Count 194, MPV 10.2, Immature Gran % (Auto) 1.900 H, Neut % (Auto) 83.8 H, Lymph % (Auto) 7.9 L , [place] % (Auto) 6.2, Eos % (Auto) 0.0, Baso % (Auto) 0.2, Absolute Neuts (auto) 8.5 H, Absolute Lymphs (auto) 0.80 L, Nucleated RBC % 0 Micro: Microbiology 06/10/21 00:25 Blood Culture (Wb) - Right Forearm Blood Culture - Preliminary No growth in 48 hours. 06/10/21 00:05 Blood Culture (Wb) - Left Wrist Blood Culture - Preliminary No growth in 48 hours. Physical Exam Narrative Tolerating Airvo. Const alert, oriented x3 and no apparent distress Constitutional Narrative: Sitting in bedside recliner. General Appearance: cooperative and well developed Nutritional Appearance: obese HEENT normocephalic, head/scalp atraumatic and moist oral mucous membranes Eyes PERRL, EOMs intact bilaterally and conjunctivae normal Neck supple General: trachea midline Resp no use of accessory muscles Effort and Inspection: symmetric chest movement and tachypneic Auscultation: diminished lung sounds; Negative for rales, rhonchi or wheezes Cardio regular rate, regular rhythm, S1 normal heart sound, S2 normal heart sound and no murmurs GI normal to inspection, nondistended, normoactive bowel sounds Extremity no clubbing, cyanosis or edema Skin no rashes or lesions noted Neuro oriented x3, CN's II-XII intact bilaterally, moves all extremities and no focal motor deficits Psych cooperative and affect normal Charges/Coding Visit Charges Inpatient E&M: 25179 Subs Hosp L3
--- NOTE | 2021-06-14 10:49 | PN.HOSP_ITS ---
Subjective Subjective Patient seen and examined. He remains on AirVO. He complains of a cough which he says makes his breathing difficult. He denies any chest pain, palpitations, dizziness, nausea or vomiting. Review of systems is otherwise negative. He remains tachypneic. Objective Data Objective Data Vital Signs: Vital Signs Temp Pulse Resp BP Pulse Ox 98.7 F 82 27 H 116/63 88 06/14/21 08:00 06/14/21 09:00 06/14/21 09:00 06/14/21 09:00 06/14/21 09:00 Oxygen Flow Rate (L/min) 55 Oxygen Delivery Method Airvo Weight: 218 lb 7.649 oz Body Mass Index (BMI) 29.4 Intake & Output: Intake and Output for Last 24 Hours 06/12/21 06/13/21 06/14/21 23:59 23:59 23:59 Intake Total 1830 / 1830 1340 / 1340 100 / 100 Output Total 1600 / 1600 1450 / 1450 Balance 230 / 230 -110 / -110 100 / 100 Lab / Micro Data Result Diagrams: 06/14/21 03:00 06/14/21 03:00 Labs: Laboratory Results - last 24 hr 06/14/21 03:00: Sodium 138, Potassium 3.9, Chloride 104, Carbon Dioxide 29.0, Anion Gap 5, BUN 37 H, Creatinine 0.89, Estim Creat Clear Calc 82.35, Est GFR (MDRD) Af Amer 107, Est GFR (MDRD) Non-Af 89, BUN/Creatinine Ratio 41.4 H, Glucose 151 H, Calcium 8.8 06/14/21 03:00: WBC 10.2, RBC 4.55 L, Hgb 13.8, Hct 41.4, MCV 91.0, MCH 30.3, MCHC 33.3, RDW Std Deviation 46.4 H, RDW Coeff of [place] 13.7, Plt Count 194, MPV 10.2, Immature Gran % (Auto) 1.900 H, Neut % (Auto) 83.8 H, Lymph % (Auto) 7.9 L , [place] % (Auto) 6.2, Eos % (Auto) 0.0, Baso % (Auto) 0.2, Absolute Neuts (auto) 8.5 H, Absolute Lymphs (auto) 0.80 L, Nucleated RBC % 0 Micro: Microbiology 06/10/21 00:25 Blood Culture (Wb) - Right Forearm Blood Culture - Preliminary No growth in 48 hours. 06/10/21 00:05 Blood Culture (Wb) - Left Wrist Blood Culture - Preliminary No growth in 48 hours. Physical Exam Const alert, oriented x3 and no apparent distress Exam Limitations: no limitations HEENT head/scalp atraumatic, moist oral mucous membranes and oropharynx normal Head and Scalp: normocephalic Eyes PERRL, EOMs intact bilaterally and conjunctivae normal Neck no lymphadenopathy and supple Resp normal respiratory effort, no retractions, no use of accessory muscles and clear to auscultation bilaterally Resp Narrative: diminished breath sounds bibasally, bilateral crackles, no wheezing. On AirVo Cardio regular rate, regular rhythm, S1 normal heart sound, S2 normal heart sound and no murmurs GI normal to inspection, nondistended, normoactive bowel sounds, soft to palpation, non-tender and non-distended Extremity normal to inspection, full ROM and no clubbing, cyanosis or edema Peripheral Pulses: Yes pulses 2+ throughout Skin no rashes or lesions noted Neuro oriented x3, CN's II-XII intact bilaterally and moves all extremities Sensorium / Orientation: awake and alert Psych affect normal Assessment & Plan Assessment/Plan (1) COVID-19: (2) Acute respiratory failure with hypoxia: (3) Pneumonia due to COVID-19 virus: PLAN: #Acute hypoxic respiratory failure due to COVID 19 infection * patient remains on AirVO; still tachypneic * critical care on board * on remdesivir and decadron. * ID on board * tocilizumab not available * patient was taking ivermectin and hydroxychloroquine due to risk of side effects and lack of benefit. * has also received monoclonal antibody infusion recently. * also being diuresed with IV lasix * #Hypertension: on lisinopril. #GI prophylaxis; PPI #DVT prophylaxis: lovenox 30mg bid. Charges/Coding Visit Charges Inpatient E&M: 12887 Subs Hosp L3
--- NOTE | 2021-06-14 11:06 | CASEMGMT ---
GORDO CM participated in ICU multidisciplinary rounds. Patient is currently on Airvo FiO2@ 90% 55 lpm. Patient is getting IV Decadron. Patient is up independent in the room. Will monitor for home oxygen at discharge. CM will continue to follow this patient and plan for a safe discharge.
[2021-06-14] MEDS: NYSTATIN 500,000 UNIT/5 ML UDC 500000 UNIT PO ×4 (11:19→20:50)
[2021-06-14] MEDS: Lisinopril 10 MG Tablet PO (11:19)
[2021-06-14] MEDS: guaiFENesin 1,200 MG Tablet 1200 MG PO ×2 (11:19→20:49)
[2021-06-14] MEDS: dexAMETHasone 10 MG/ML Vial 6 MG IV (11:19)
[2021-06-14] MEDS: Enoxaparin 30 MG/0.3 ML Syringe SC ×2 (11:19→20:50)
[2021-06-14] MEDS: Pantoprazole Sodium 20 MG Tablet PO (11:20)
[2021-06-14] MEDS: Acetaminophen 325 MG Tablet 650 MG PO (20:50)
[2021-06-15] VITALS (29 sets, daily range): BP systolic 102–137; BP diastolic 51–72; PULSE 48–83; RESP 12–31; TEMP 36.1–38.2; O2SAT 87–98
[2021-06-15 04:40] LABS: Anion Gap 5 (5-15); BUN 34 mg/dL (7-18); BUN/Creat Ratio 36.8 RATIO (10-20); Calcium,Total 8.8 mg/dL (8.5-10.1); Chloride 106 mmol/L (98-107); Creatinine, Serum 0.92 mg/dL (0.70-1.30); EST Glomerular Filtration Rate 85 mL/min (>60); Est Glom Filt Rate - Afr Amer 103 mL/min (>60); Estimated Creatinine Clearance 79.66 ml/min; Glucose 133 mg/dL (74-106); Potassium 4.8 mmol/L (3.5-5.1); Sodium Level 138 mmol/L (136-145)
--- NOTE | 2021-06-15 06:44 | PCM.PN.INT ---
Assessment & Plan Assessment/Plan (1) Acute respiratory failure with hypoxia: (2) COVID-19: PLAN: RECOMMENDATIONS: 1. Continue Decadron to complete treatment course. 2. Continue twice daily Lovenox. 3. Wean FiO2 to maintain oxygen saturations at or above 90%. 4. Encourage incentive spirometer use and mobilize patient as tolerated. 5. Maintain euvolemic state. IMPRESSIONS: 1. Acute hypoxic respiratory failure secondary to COVID-19 pneumonia The patient presented to the hospital with worsening respiratory status despite having received monoclonal antibody therapy. The patient has since completed a treatment course of remdesivir and will remain on Decadron to complete a 10-day course. He will be continued on a combination of heated high flow and BiPAP, as tolerated to maintain oxygen saturations at or above 90%. Encourage incentive spirometer use and mobilize patient as tolerated. Maintain euvolemic state with as needed diuretic therapy. 2. Hypertension/obesity/advanced age/inappropriate hydroxychloroquine use Complicates care, management, recovery and prognosis. Okay to continue lisinopril for now. This note was generated with [employer] dictation software. It may contain incorrect words, spelling, and punctuation that were not noted in checking the note before signing. Subjective Subjective The patient was seen and examined at the bedside this morning. Events from the last 24 hours have been reviewed. The patient is currently afebrile, hemodynamically stable and maintaining appropriate oxygen saturations on Airvo heated high flow with an FiO2 requirement of 90% and flow rate of 55 L/min. The patient was maintained on BiPAP all night long. He is currently documented to be overall net -840 mL for the hospital admission. The patient has completed his treatment course of remdesivir and remains on Decadron and Lovenox. Objective Data Objective Data The patient's most recent lab work, culture data and imaging studies have all been personally reviewed. Coronavirus PCR was positive on June 04. Vital Signs: Vital Signs Temp Pulse Resp BP Pulse Ox 97 F L 66 23 H 116/64 90 06/15/21 04:00 06/15/21 06:00 06/15/21 06:00 06/15/21 06:00 06/15/21 06:00 Oxygen Flow Rate (L/min) 55 Oxygen Delivery Method Airvo Weight: 99.1 kg Body Mass Index (BMI) 29.4 Intake & Output: Intake and Output for Last 24 Hours 06/13/21 06/14/21 06/15/21 23:59 23:59 23:59 Intake Total 1340 / 1340 100 / 100 Output Total 1450 / 1450 425 / 875 875 / 875 Balance -110 / -110 -325 / -775 -875 / -875 Lab / Micro Data Attestation: I reviewed the patient's lab results. Result Diagrams: 06/14/21 03:00 06/15/21 04:15 Labs: Laboratory Results - last 24 hr 06/15/21 04:15: Sodium 138, Potassium 4.8, Chloride 106, Carbon Dioxide 27.0, Anion Gap 5, BUN 34 H, Creatinine 0.92, Estim Creat Clear Calc 79.66, Est GFR (MDRD) Af Amer 103, Est GFR (MDRD) Non-Af 85, BUN/Creatinine Ratio 36.8 H, Glucose 133 H, Calcium 8.8 Micro: Microbiology 06/10/21 00:25 Blood Culture (Wb) - Right Forearm Blood Culture - Preliminary No growth in 48 hours. 06/10/21 00:05 Blood Culture (Wb) - Left Wrist Blood Culture - Preliminary No growth in 48 hours. Physical Exam Narrative Tolerating Airvo. Const alert, oriented x3 and no apparent distress Constitutional Narrative: Sitting in bedside recliner. General Appearance: cooperative and well developed Nutritional Appearance: obese HEENT normocephalic, head/scalp atraumatic and moist oral mucous membranes Eyes PERRL, EOMs intact bilaterally and conjunctivae normal Neck supple General: trachea midline Resp no use of accessory muscles Effort and Inspection: symmetric chest movement and tachypneic Auscultation: diminished lung sounds; Negative for rales, rhonchi or wheezes Cardio regular rate, regular rhythm, S1 normal heart sound, S2 normal heart sound and no murmurs GI normal to inspection, nondistended, normoactive bowel sounds Extremity no clubbing, cyanosis or edema Skin no rashes or lesions noted Neuro oriented x3, CN's II-XII intact bilaterally, moves all extremities and no focal motor deficits Psych cooperative and affect normal Charges/Coding Visit Charges Inpatient E&M: 37995 Subs Hosp L3
[2021-06-15 07:41] LABS: BNP,B-Type NATRIURETIC PEPTIDE 25.8 pg/mL (0-100)
[2021-06-15] MEDS: guaiFENesin 10 ML UDC (200MG/10ML) PO ×2 (08:12→17:36)
--- NOTE | 2021-06-15 09:49 | PN.HOSP_ITS ---
Subjective Subjective Patient seen and examined. He remains on AirVo. Review of systems is otherwise negative. He has remained hemodynamically stable. Objective Data Objective Data Vital Signs: Vital Signs Temp Pulse Resp BP Pulse Ox 99.0 F 68 23 H 125/60 H 90 06/15/21 08:00 06/15/21 08:00 06/15/21 08:00 06/15/21 08:00 06/15/21 08:00 Oxygen Flow Rate (L/min) 55 Oxygen Delivery Method Airvo Weight: 218 lb 7.649 oz Body Mass Index (BMI) 29.4 Intake & Output: Intake and Output for Last 24 Hours 06/13/21 06/14/21 06/15/21 23:59 23:59 23:59 Intake Total 1340 / 1340 100 / 100 Output Total 1450 / 1450 425 / 875 875 / 875 Balance -110 / -110 -325 / -775 -875 / -875 Lab / Micro Data Result Diagrams: 06/14/21 03:00 06/15/21 04:15 Labs: Laboratory Results - last 24 hr 06/15/21 04:15: Sodium 138, Potassium 4.8, Chloride 106, Carbon Dioxide 27.0, Anion Gap 5, BUN 34 H, Creatinine 0.92, Estim Creat Clear Calc 79.66, Est GFR (MDRD) Af Amer 103, Est GFR (MDRD) Non-Af 85, BUN/Creatinine Ratio 36.8 H, Glucose 133 H, Calcium 8.8 06/15/21 04:15: B-Natriuretic Peptide 25.8 Micro: Microbiology 06/10/21 00:25 Blood Culture (Wb) - Right Forearm Blood Culture - Final No growth in 5 days. 06/10/21 00:05 Blood Culture (Wb) - Left Wrist Blood Culture - Final No growth in 5 days. Physical Exam Const alert, oriented x3 and no apparent distress Exam Limitations: no limitations HEENT head/scalp atraumatic, moist oral mucous membranes and oropharynx normal Head and Scalp: normocephalic Eyes PERRL, EOMs intact bilaterally and conjunctivae normal Neck no lymphadenopathy and supple Resp Resp Narrative: diminished breath sounds bibasally, bilateral crackles, no wheezing. On AirVo Cardio regular rate, regular rhythm, S1 normal heart sound, S2 normal heart sound and no murmurs GI normal to inspection, nondistended, normoactive bowel sounds, soft to palpation, non-tender and non-distended Extremity normal to inspection, full ROM and no clubbing, cyanosis or edema Peripheral Pulses: Yes pulses 2+ throughout Skin no rashes or lesions noted Neuro oriented x3, CN's II-XII intact bilaterally and moves all extremities Sensorium / Orientation: awake and alert Psych affect normal Assessment & Plan Assessment/Plan (1) COVID-19: (2) Acute respiratory failure with hypoxia: (3) Pneumonia due to COVID-19 virus: PLAN: #Acute hypoxic respiratory failure due to COVID 19 infection * patient remains on AirVO; * critical care on board * on remdesivir and decadron. * ID on board * also being diuresed with IV lasix, in cumulative negative balance by 840mls. * #Hypertension: on lisinopril. #GI prophylaxis; PPI #DVT prophylaxis: lovenox 30mg bid. Charges/Coding Visit Charges Inpatient E&M: 41436 Subs Hosp L3
[2021-06-15] MEDS: Acetaminophen 325 MG Tablet 650 MG PO ×2 (10:50→20:17)
[2021-06-15] MEDS: Enoxaparin 30 MG/0.3 ML Syringe SC ×2 (10:50→21:06)
[2021-06-15] MEDS: NYSTATIN 500,000 UNIT/5 ML UDC 500000 UNIT PO ×3 (10:50→17:36)
[2021-06-15] MEDS: Lisinopril 10 MG Tablet PO (10:50)
[2021-06-15] MEDS: guaiFENesin 1,200 MG Tablet 1200 MG PO ×2 (10:51→21:06)
[2021-06-15] MEDS: dexAMETHasone 10 MG/ML Vial 6 MG IV (10:51)
[2021-06-15] MEDS: Pantoprazole Sodium 20 MG Tablet PO (10:51)
[2021-06-16] VITALS (32 sets, daily range): BP systolic 79–151; BP diastolic 44–83; PULSE 56–109; RESP 12–38; TEMP 36.6–38.2; O2SAT 89–95
[2021-06-16] MEDS: guaiFENesin 10 ML UDC (200MG/10ML) PO ×2 (01:56→05:56)
[2021-06-16] MEDS: 0.9% Saline Lock 10 ML Syringe IV ×4 (04:35→16:27)
--- NOTE | 2021-06-16 05:52 | CPS ---
pt having significant coughing spell and unable to maintain sats, Pt placed back on BiPAP to recover.
[2021-06-16 06:06] LABS: Absolute Lymphocyte Count 0.59 X10^3/uL (0.83-4.51); Absolute Neutrophil Count 16.7 X10^3/uL (2.0-7.7); Basophil# 0.02 X10^3/uL; Basophil% 0.1 % (0-1); Eosinophil# 0.04 X10^3/uL; Eosinophils% 0.2 % (0-5); Hematocrit 41.3 % (40-54); Lymphocyte # 0.59 X10^3/ul (0.83-4.51); Lymphocyte % 3.3 % (19-41); Mean Corp Hgb Conc 33.9 g/dL (32-36); Mean Corpuscular Hgb 30.6 pg (27.0-32.0); Mean Corpuscular Volume 90.4 fL (80-94); Mean Platelet Vol. 11.4 fl (6.2-12.0); Monocyte# 0.44 X10^3/uL; Monocyte% 2.4 % (0-10); NRBC Flagged by Analyzer 0 % (0-5); Neutrophil # 16.73 X10^3/uL (2.7-7.7); Neutrophil % 92.7 % (47-70); POSITIVE DIFFERENTIAL YES; Platelet Count 218 K/mm3 (150-450); RBC Distribution Width CV 13.7 % (11.6-14.6); RBC Distribution Width SD 45.5 fl (35.1-43.9); Red Blood Count 4.57 M/mm3 (4.6-6.2); White Blood Count 18.1 K/mm3 (4.4-11.0)
[2021-06-16 06:09] LABS: Differential Indicated SCAN CRITERIA MET
--- NOTE | 2021-06-16 06:13 | PN.CC_ITS ---
Assessment & Plan Assessment/Plan (1) Acute respiratory failure with hypoxia: (2) COVID-19: PLAN: RECOMMENDATIONS: 1. Continue Decadron to complete treatment course. 2. Continue twice daily Lovenox. 3. Wean FiO2 to maintain oxygen saturations at or above 90%. 4. Encourage incentive spirometer use and mobilize patient as tolerated. 5. Maintain euvolemic state. Will administer IV Lasix today. 6. Start scheduled BuSpar for anxiety. 7. Continue Robitussin with codeine for cough suppression. IMPRESSIONS: 1. Acute hypoxic respiratory failure secondary to COVID-19 pneumonia The patient presented to the hospital with worsening respiratory status despite having received monoclonal antibody therapy. The patient has since completed a treatment course of remdesivir and will remain on Decadron to complete a 10-day course. He will be continued on a combination of heated high flow and BiPAP, as tolerated to maintain oxygen saturations at or above 90%. Encourage incentive spirometer use and mobilize patient as tolerated. Maintain euvolemic state with as needed diuretic therapy. 2. Hypertension/obesity/advanced age/inappropriate hydroxychloroquine use Complicates care, management, recovery and prognosis. Okay to continue lisinopril for now. This note was generated with [employer] dictation software. It may contain incorrect words, spelling, and punctuation that were not noted in checking the note before signing. Subjective Subjective The patient was seen and examined at the bedside this morning. Events from the last 24 hours have been reviewed. The patient is currently afebrile, hemodynamically stable and maintaining appropriate oxygen saturations on BiPAP with an FiO2 requirement of 100%. Per nursing report, the patient has had a difficult night with significant cough and bronchospasm. He has been anxious and restless. The patient was able to be maintained on Airvo throughout the day yesterday, nevertheless. He is currently documented to be overall net -1.8 L for the hospital admission. White count has increased this morning to 18,000. Objective Data Objective Data The patient's most recent lab work, culture data and imaging studies have all been personally reviewed. Coronavirus PCR was positive on June 04. Vital Signs: Vital Signs Temp Pulse Resp BP Pulse Ox 99.2 F H 94 30 H 137/78 H 92 06/16/21 05:00 06/16/21 05:45 06/16/21 05:45 06/16/21 05:00 06/16/21 05:45 Oxygen Flow Rate (L/min) 60 Oxygen Delivery Method Bi-pap Weight: 97.5 kg Body Mass Index (BMI) 29.4 Intake & Output: Intake and Output for Last 24 Hours 06/14/21 06/15/21 06/16/21 23:59 23:59 23:59 Intake Total 100 / 100 Output Total 425 / 875 1625 / 1750 275 / 275 Balance -325 / -775 -1625 / -1750 -275 / -275 Lab / Micro Data Attestation: I reviewed the patient's lab results. Result Diagrams: 06/16/21 04:45 06/16/21 04:45 Labs: Laboratory Results - last 24 hr 06/15/21 04:15: B-Natriuretic Peptide 25.8 06/16/21 04:45: Sodium 136, Potassium 4.9, Chloride 105, Carbon Dioxide 24.0, Anion Gap 7, BUN 31 H, Creatinine 0.83, Estim Creat Clear Calc 88.30, Est GFR (MDRD) Af Amer 116, Est GFR (MDRD) Non-Af 96, BUN/Creatinine Ratio 37.2 H, Glucose 102, Calcium 8.8 06/16/21 04:45: WBC 18.1 H, RBC 4.57 L, Hgb 14.0, Hct 41.3, MCV 90.4, MCH 30.6, MCHC 33.9, RDW Std Deviation 45.5 H, RDW Coeff of [place] 13.7, Plt Count 218, MPV 11.4, Immature Gran % (Auto) 1.300 H, Neut % (Auto) 92.7 H, Lymph % (Auto) 3.3 L , [place] % (Auto) 2.4, Eos % (Auto) 0.2, Baso % (Auto) 0.1, Absolute Neuts (auto) 16.7 H, Absolute Lymphs (auto) 0.59 L, Nucleated RBC % 0 Micro: Microbiology 06/10/21 00:25 Blood Culture (Wb) - Right Forearm Blood Culture - Final No growth in 5 days. 06/10/21 00:05 Blood Culture (Wb) - Left Wrist Blood Culture - Final No growth in 5 days. Physical Exam Const alert and oriented x3 Constitutional Narrative: Sitting in bedside recliner. General Appearance: cooperative, well developed and on BiPAP Nutritional Appearance: obese HEENT normocephalic, head/scalp atraumatic and moist oral mucous membranes Eyes PERRL, EOMs intact bilaterally and conjunctivae normal Neck supple General: trachea midline Resp no use of accessory muscles Effort and Inspection: symmetric chest movement and tachypneic Auscultation: diminished lung sounds; Negative for rales, rhonchi or wheezes Cardio regular rate, regular rhythm, S1 normal heart sound, S2 normal heart sound and no murmurs GI normal to inspection, nondistended, normoactive bowel sounds Extremity no clubbing, cyanosis or edema Skin no rashes or lesions noted Neuro oriented x3, CN's II-XII intact bilaterally, moves all extremities and no focal motor deficits Psych Mood & Affect: anxious Charges/Coding Visit Charges Inpatient E&M: 62551 Subs Hosp L3
[2021-06-16] MEDS: guaiFENesin/Codeine 5 ML UDC PO ×3 (06:21→21:58)
[2021-06-16 06:29] LABS: ALB/GLOB Ratio 0.6 RATIO (0.9-2.4); AST(SGOT) 43 U/L (15-37); Alanine Aminotransfer ALT/SGPT 33 U/L (16-61); Albumin, Serum 2.6 g/dL (3.2-5.0); Alkaline Phosphatase 53 U/L (45-117); Anion Gap 7 (5-15); BUN 32 mg/dL (7-18); Chloride 107 mmol/L (98-107); Creatinine, Serum 0.89 mg/dL (0.70-1.30); EST Glomerular Filtration Rate 89 mL/min (>60); Est Glom Filt Rate - Afr Amer 108 mL/min (>60); Estimated Creatinine Clearance 82.35 ml/min; Globulin 4.6 g/dL (2.2-4.2); Glucose 97 mg/dL (74-106); Potassium 4.9 mmol/L (3.5-5.1); Protein, Total 7.2 g/dL (6.4-8.2); Sodium Level 136 mmol/L (136-145)
[2021-06-16] MEDS: Furosemide 40 MG/4 ML Vial IV (06:35)
[2021-06-16 07:58] LABS: Procalcitonin 0.16 ng/mL (0.00-0.09)
[2021-06-16 08:02] LABS: BNP,B-Type NATRIURETIC PEPTIDE 23.7 pg/mL (0-100)
[2021-06-16] MEDS: dexAMETHasone 10 MG/ML Vial 6 MG IV (08:13)
[2021-06-16] MEDS: NYSTATIN 500,000 UNIT/5 ML UDC 500000 UNIT PO ×3 (08:17→21:54)
[2021-06-16] MEDS: Lisinopril 10 MG Tablet PO (08:18)
[2021-06-16] MEDS: Enoxaparin 30 MG/0.3 ML Syringe SC ×2 (08:18→21:54)
[2021-06-16] MEDS: Pantoprazole Sodium 20 MG Tablet PO (08:18)
[2021-06-16] MEDS: Acetaminophen 325 MG Tablet 650 MG PO ×2 (08:19→21:56)
--- NOTE | 2021-06-16 09:54 | PCS.PANDOC ---
PANDEMIC DOCUMENTATION INITIATED: Date: 06/06/2021 Time: 190
--- NOTE | 2021-06-16 09:59 | PN.HOSP_ITS ---
Subjective Subjective Patient seen and examined. He remains on BIPAP. He had no active complaints. He feels his breathing is getting better. Review of systems is otherwise negative. He has remained hemodynamically stable otherwise. Objective Data Objective Data Vital Signs: Vital Signs Temp Pulse Resp BP Pulse Ox 99.2 F H 105 H 28 H 127/73 H 90 06/16/21 07:00 06/16/21 07:00 06/16/21 07:00 06/16/21 07:00 06/16/21 09:30 Oxygen Flow Rate (L/min) 60 Oxygen Delivery Method Bi-pap Weight: 214 lb 15.211 oz Body Mass Index (BMI) 29.4 Intake & Output: Intake and Output for Last 24 Hours 06/14/21 06/15/21 06/16/21 23:59 23:59 23:59 Intake Total 100 / 100 Output Total 425 / 875 1625 / 1750 775 / 775 Balance -325 / -775 -1625 / -1750 -775 / -775 Lab / Micro Data Result Diagrams: 06/16/21 04:45 06/16/21 04:45 Labs: Laboratory Results - last 24 hr 06/16/21 04:45: Sodium Cancelled, Potassium Cancelled, Chloride Cancelled, Carbon Dioxide Cancelled, Anion Gap Cancelled, BUN Cancelled, Creatinine Cancelled, Estim Creat Clear Calc Cancelled, Est GFR (MDRD) Af Amer Cancelled, Est GFR (MDRD) Non-Af Cancelled, BUN/Creatinine Ratio Cancelled, Glucose Cancelled, Calcium Cancelled 06/16/21 04:45: WBC 18.1 H, RBC 4.57 L, Hgb 14.0, Hct 41.3, MCV 90.4, MCH 30.6, MCHC 33.9, RDW Std Deviation 45.5 H, RDW Coeff of [place] 13.7, Plt Count 218, MPV 11.4, Immature Gran % (Auto) 1.300 H, Neut % (Auto) 92.7 H, Lymph % (Auto) 3.3 L , [place]ette % (Auto) 2.4, Eos % (Auto) 0.2, Baso % (Auto) 0.1, Absolute Neuts (auto) 16.7 H, Absolute Lymphs (auto) 0.59 L, Nucleated RBC % 0 06/16/21 04:45: Sodium 136, Potassium 4.9, Chloride 107, Carbon Dioxide 22.0, Anion Gap 7, BUN 32 H, Creatinine 0.89, Estim Creat Clear Calc 82.35, Est GFR (MDRD) Af Amer 108, Est GFR (MDRD) Non-Af 89, BUN/Creatinine Ratio 36.0 H, Glucose 97, Calcium 9.0, Total Bilirubin 1.20 H, AST 43 H, ALT 33, Alkaline Phosphatase 53, Total Protein 7.2, Albumin 2.6 L, Globulin 4.6 H, Albumin/Reat bulin Ratio 0.6 L 06/16/21 06:25: B-Natriuretic Peptide 23.7 06/16/21 06:25: Procalcitonin 0.16 H Micro: Microbiology 06/16/21 08:30 Urine, Clean Catch Legionella Antigen - Final 06/16/21 08:30 Urine, Clean Catch Streptococcus pneumoniae Antigen (M - Final 06/10/21 00:25 Blood Culture (Wb) - Right Forearm Blood Culture - Final No growth in 5 days. 06/10/21 00:05 Blood Culture (Wb) - Left Wrist Blood Culture - Final No growth in 5 days. Physical Exam Const alert, oriented x3 and no apparent distress Exam Limitations: no limitations HEENT head/scalp atraumatic, moist oral mucous membranes and oropharynx normal Head and Scalp: normocephalic Eyes PERRL, EOMs intact bilaterally and conjunctivae normal Neck no lymphadenopathy and supple Resp normal respiratory effort, no retractions, no use of accessory muscles and clear to auscultation bilaterally Resp Narrative: diminished breath sounds bibasally, bilateral crackles, no whee zing. On BIPAP Cardio regular rate, regular rhythm, S1 normal heart sound, S2 normal heart sound and no murmurs GI normal to inspection, nondistended, normoactive bowel sounds, soft to palpation, non-tender and non-distended Extremity normal to inspection, full ROM and no clubbing, cyanosis or edema Peripheral Pulses: Yes pulses 2+ throughout Skin no rashes or lesions noted Neuro oriented x3, CN's II-XII intact bilaterally and moves all extremities Sensorium / Orientation: awake and alert Psych affect normal Assessment & Plan Assessment/Plan (1) COVID-19: (2) Acute respiratory failure with hypoxia: (3) Pneumonia due to COVID-19 virus: PLAN: #Acute hypoxic respiratory failure due to COVID 19 infection * patient now on BIPAP. * critical care on board * on decadron; has completed a course of remdesivir. * ID on board * also being diuresed with IV lasix, in cumulative negative balance by 840mls. * #Hypertension: on lisinopril. #GI prophylaxis; PPI #DVT prophylaxis: lovenox 30mg bid. Charges/Coding Visit Charges Inpatient E&M: 90146 Subs Hosp L3
[2021-06-16] MEDS: busPIRone 5 MG Tablet PO ×2 (11:14→21:53)
[2021-06-16 12:06] LABS: M R Staph aureus DNA By PCR Negative (Negative); Probe Check PASS; Specimen Processing Control PASS
[2021-06-16 14:09] LABS: Magnesium 2.1 mg/dL (1.6-2.6); Phosphorus 3.8 mg/dL (2.5-4.9)
[2021-06-17] VITALS (34 sets, daily range): BP systolic 95–143; BP diastolic 49–83; PULSE 75–113; RESP 12–38; TEMP 36.7–38.2; O2SAT 82–100
[2021-06-17] MEDS: guaiFENesin/Codeine 5 ML UDC PO ×3 (03:59→23:08)
[2021-06-17 04:08] LABS: Anion Gap 8 (5-15); BUN 38 mg/dL (7-18); BUN/Creat Ratio 35.5 RATIO (10-20); Calcium,Total 8.9 mg/dL (8.5-10.1); Chloride 101 mmol/L (98-107); Creatinine, Serum 1.07 mg/dL (0.70-1.30); EST Glomerular Filtration Rate 72 mL/min (>60); Est Glom Filt Rate - Afr Amer 87 mL/min (>60); Estimated Creatinine Clearance 68.49 ml/min; Glucose 123 mg/dL (74-106); Potassium 4.6 mmol/L (3.5-5.1); Sodium Level 134 mmol/L (136-145)
--- NOTE | 2021-06-17 06:16 | PN.CC_ITS ---
Assessment & Plan Assessment/Plan (1) Acute respiratory failure with hypoxia: (2) COVID-19: PLAN: RECOMMENDATIONS: 1. Continue Decadron to complete treatment course. 2. Continue twice daily Lovenox. 3. Wean FiO2 to maintain oxygen saturations at or above 90%. 4. Encourage incentive spirometer use and mobilize patient as tolerated. 5. Maintain euvolemic state. 6. Continue Robitussin with codeine for cough suppression. IMPRESSIONS: 1. Acute hypoxic respiratory failure secondary to COVID-19 pneumonia The patient presented to the hospital with worsening respiratory status despite having received monoclonal antibody therapy. The patient has since completed a treatment course of remdesivir and will remain on Decadron to complete a 10-day course. He will be continued on a combination of heated high flow and BiPAP, as tolerated to maintain oxygen saturations at or above 90%. Encourage incentive spirometer use and mobilize patient as tolerated. Maintain euvolemic state with as needed diuretic therapy. 2. Hypertension/obesity/advanced age/inappropriate hydroxychloroquine use Complicates care, management, recovery and prognosis. Okay to continue lisinopril for now. This note was generated with [employer] dictation software. It may contain incorrect words, spelling, and punctuation that were not noted in checking the note before signing. Subjective Subjective The patient was seen and examined at the bedside this morning. Events from the last 24 hours have been reviewed. The patient is currently afebrile, he modynamically stable and maintaining appropriate oxygen saturations on BiPAP currently with an FiO2 requirement of 75%. The patient tolerated Airvo throughout the day yesterday. He is currently documented to be overall net -2.9 L for the hospital admission. The patient continues to have a cough, which has improved with codeine use. The patient has already completed a treatment course of remdesivir and remains on Decadron and Lovenox twice daily. Objective Data Objective Data The patient's most recent lab work, culture data and imaging studies have all been personally reviewed. Coronavirus PCR was positive on June 04. Blood cultures have demonstrated no growth to date. Strep and urine Legionella antigens were negative. Vital Signs: Vital Signs Temp Pulse Resp BP Pulse Ox 98.0 F 113 H 28 H 129/65 H 94 06/17/21 02:00 06/17/21 06:00 06/17/21 06:00 06/17/21 06:00 06/17/21 06:00 Oxygen Flow Rate (L/min) 40 Oxygen Delivery Method Bi-pap Weight: 97.5 kg Body Mass Index (BMI) 29.4 Intake & Output: Intake and Output for Last 24 Hours 06/15/21 06/16/21 06/17/21 23:59 23:59 23:59 Intake Total 440 / 440 Output Total 1625 / 1750 1625 / 1750 125 / 125 Balance -1625 / -1750 -1185 / -1310 -125 / -125 Lab / Micro Data Attestation: I reviewed the patient's lab results. Result Diagrams: 06/16/21 04:45 06/17/21 03:15 Labs: Laboratory Results - last 24 hr 06/16/21 04:45: Sodium Cancelled, Potassium Cancelled, Chloride Cancelled, Carbon Dioxide Cancelled, Anion Gap Cancelled, BUN Cancelled, Creatinine Cancel led, Estim Creat Clear Calc Cancelled, Est GFR (MDRD) Af Amer Cancelled, Est GFR (MDRD) Non-Af Cancelled, BUN/Creatinine Ratio Cancelled, Glucose Cancelled, Calcium Cancelled 06/16/21 04:45: Sodium 136, Potassium 4.9, Chloride 107, Carbon Dioxide 22.0, Anion Gap 7, BUN 32 H, Creatinine 0.89, Estim Creat Clear Calc 82.35, Est GFR (MDRD) Af Amer 108, Est GFR (MDRD) Non-Af 89, BUN/Creatinine Ratio 36.0 H, Glucose 97, Calcium 9.0, Total Bilirubin 1.20 H, AST 43 H, ALT 33, Alkaline Roxanne sphatase 53, Total Protein 7.2, Albumin 2.6 L, Globulin 4.6 H, Albumin/Globulin Ratio 0.6 L 06/16/21 04:45: Phosphorus Cancelled, Magnesium Cancelled 06/16/21 06:25: B-Natriuretic Peptide 23.7 06/16/21 06:25: Procalcitonin 0.16 H 06/16/21 08:30: MRSA (PCR) Negative 06/16/21 13:45: Phosphorus 3.8, Magnesium 2.1 06/17/21 03:15: Sodium 134 L, Potassium 4.6, Chloride 101, Carbon Dioxide 25.0, Anion Gap 8, BUN 38 H, Creatinine 1.07, Estim Creat Clear Calc 68.49, Est GFR (MDRD) Af Amer 87, Est GFR (MDRD) Non-Af 72, BUN/Creatinine Ratio 35.5 H, Glucose 123 H, Calcium 8.9 Micro: Microbiology 06/16/21 08:30 Urine, Clean Catch Legionella Antigen - Final 06/16/21 08:30 Urine, Clean Catch Streptococcus pneumoniae Antigen (M - Final 06/10/21 00:25 Blood Culture (Wb) - Right Forearm Blood Culture - Final No growth in 5 days. 06/10/21 00:05 Blood Culture (Wb) - Left Wrist Blood Culture - Final No growth in 5 days. Physical Exam Const alert and oriented x3 Constitutional Narrative: Sitting in bedside recliner. General Appearance: cooperative and well developed Nutritional Appearance: obese HEENT normocephalic, head/scalp atraumatic and moist oral mucous membranes Eyes PERRL, EOMs intact bilaterally and conjunctivae normal Neck supple General: trachea midline Resp no use of accessory muscles Effort and Inspection: symmetric chest movement and actively coughing Auscultation: diminished lung sounds; Negative for rales, rhonchi or wheezes Cardio regular rate, regular rhythm, S1 normal heart sound, S2 normal heart sound and no murmurs GI normal to inspection, nondistended, normoactive bowel sounds Extremity no clubbing, cyanosis or edema Skin no rashes or lesions noted Neuro oriented x3, CN's II-XII intact bilaterally, moves all extremities and no focal motor deficits Psych cooperative and affect normal Charges/Coding Visit Charges Inpatient E&M: 28096 Subs Hosp L3
[2021-06-17] MEDS: Acetaminophen 325 MG Tablet 650 MG PO ×2 (06:37→18:08)
[2021-06-17] MEDS: Pantoprazole Sodium 20 MG Tablet PO (08:26)
[2021-06-17] MEDS: dexAMETHasone 10 MG/ML Vial 6 MG IV (08:26)
[2021-06-17] MEDS: busPIRone 5 MG Tablet PO ×2 (08:26→21:12)
[2021-06-17] MEDS: Enoxaparin 30 MG/0.3 ML Syringe SC ×2 (08:26→21:12)
[2021-06-17] MEDS: 0.9% Saline Lock 10 ML Syringe IV (08:26)
[2021-06-17] MEDS: NYSTATIN 500,000 UNIT/5 ML UDC 500000 UNIT PO ×3 (08:26→21:12)
--- NOTE | 2021-06-17 10:41 | PN.HOSP_ITS ---
Subjective Subjective Patient seen and seen and examined. He has now new complaints today and feels well. Review of systems is otherwise negative. He remains on AirVo. Review of systems otherwise negative. Objective Data Objective Data Vital Signs: Vital Signs Temp Pulse Resp BP Pulse Ox 100.8 F H 110 H 24 H 132/59 H 92 06/17/21 07:00 06/17/21 07:00 06/17/21 07:00 06/17/21 07:00 06/17/21 07:39 Oxygen Flow Rate (L/min) 40 Oxygen Delivery Method Airvo Weight: 214 lb 11.684 oz Body Mass Index (BMI) 29.4 Intake & Output: Intake and Output for Last 24 Hours 06/15/21 06/16/21 06/17/21 23:59 23:59 23:59 Intake Total 440 / 440 Output Total 1625 / 1750 1625 / 1750 300 / 300 Balance -1625 / -1750 -1185 / -1310 -300 / -300 Lab / Micro Data Result Diagrams: 06/16/21 04:45 06/17/21 03:15 Labs: Laboratory Results - last 24 hr 06/16/21 04:45: Phosphorus Cancelled, Magnesium Cancelled 06/16/21 08:30: MRSA (PCR) Negative 06/16/21 13:45: Phosphorus 3.8, Magnesium 2.1 06/17/21 03:15: Sodium 134 L, Potassium 4.6, Chloride 101, Carbon Dioxide 25.0, Anion Gap 8, BUN 38 H, Creatinine 1.07, Estim Creat Clear Calc 68.49, Est GFR (MDRD) Af Amer 87, Est GFR (MDRD) Non-Af 72, BUN/Creatinine Ratio 35.5 H, Glucose 123 H, Calcium 8.9 Micro: Microbiology 06/16/21 08:30 Urine, Clean Catch Legionella Antigen - Final 06/16/21 08:30 Urine, Clean Catch Streptococcus pneumoniae Antigen (M - Final 06/10/21 00:25 Blood Culture (Wb) - Right Forearm Blood Culture - Final No growth in 5 days. 06/10/21 00:05 Blood Culture (Wb) - Left Wrist Blood Culture - Final No growth in 5 days. Physical Exam Const alert, oriented x3 and no apparent distress Exam Limitations: no limitations HEENT head/scalp atraumatic, moist oral mucous membranes and oropharynx normal Head and Scalp: normocephalic Eyes PERRL, EOMs intact bilaterally and conjunctivae normal Neck no lymphadenopathy and supple Resp Resp Narrative: diminished breath sounds bibasally, bilateral crackles, no wheezing. On AirVo. Cardio regular rate, regular rhythm, S1 normal heart sound, S2 normal heart sound and no murmurs GI normal to inspection, nondistended, normoactive bowel sounds, soft to palpation, non-tender and non-distended Extremity normal to inspection, full ROM and no clubbing, cyanosis or edema Peripheral Pulses: Yes pulses 2+ throughout Skin no rashes or lesions noted Neuro oriented x3, CN's II-XII intact bilaterally and moves all extremities Sensorium / Orientation: awake and alert Psych affect normal Assessment & Plan Assessment/Plan (1) COVID-19: (2) Acute respiratory failure with hypoxia: (3) Pneumonia due to COVID-19 virus: PLAN: #Acute hypoxic respiratory failure due to COVID 19 infection * patient now on BIPAP. * critical care on board * on decadron; has completed a course of remdesivir. * ID on board * also being diuresed with IV lasix, in cumulative negative balance by 840mls. * #Hypertension: on lisinopril. #GI prophylaxis; PPI #DVT prophylaxis: lovenox 30mg bid.
--- NOTE | 2021-06-17 11:45 | CASEMGMT ---
Palliative screening tool completed for Lace/Strata 3. Patient does not meet criteria at this time.
[2021-06-17] MEDS: MELATONIN 10 MG TABLET PO (21:12)
--- NOTE | 2021-06-17 22:57 | NURSING ---
Charting of Poncho CARO reviewed
--- NOTE | 2021-06-17 23:30 | NURSING ---
Pt placed on bipap /, fio2 70%
[2021-06-18] VITALS (35 sets, daily range): BP systolic 91–167; BP diastolic 49–94; PULSE 72–122; RESP 12–38; TEMP 36.3–39.1; O2SAT 80–99
[2021-06-18] MEDS: Acetaminophen 325 MG Tablet 650 MG PO ×2 (01:04→08:24)
[2021-06-18] MEDS: guaiFENesin/Codeine 5 ML UDC PO ×3 (04:58→17:55)
--- NOTE | 2021-06-18 05:20 | NURSING ---
Pt with light on, states he needs more air, pt tachypneic, tachycardic. This RN asked patient if he would want to be intubated if needed, pt states Yes if he is gonna . Dr Diaz contacted, new orders recieved.
--- NOTE | 2021-06-18 05:34 | RAD_ITS ---
STUDY: X-RAY CHEST REASON FOR EXAM: Male, 70 years old. Change in respiratory status TECHNIQUE: Single AP portable view of the chest. COMPARISON: 06/10/2021 FINDINGS: No change in the alveolar opacities in both lungs consistent with bilateral pneumonia. There is no demonstrated pleural abnormality. Normal size heart. Normal mediastinum and aj. Normal visualized pulmonary arteries. Normal visualized aortic arch and descending thoracic aorta. Normal visualized thoracic spine. Normal visualized ribs, clavicles, and shoulders. There is no demonstrated abnormality of the visualized soft tissue structures of the upper abdomen. RAD/Chest 1 View (Portable) IMPRESSION: No change in bilateral pneumonia. Electronically Signed: Osmin Luo MD at 8:03 EDT Tel , Service support ,
--- NOTE | 2021-06-18 05:48 | NURSING ---
Dr Diaz updated on unit.
[2021-06-18 05:51] LABS: Allen Test Positive; Base Excess -2 mmol/L (-2 to +2); Bicarbonate 21.9 mmol/L (22-26); Blood Gas Specimen Type ART; Comment 16/10; FI02 100; O2 Delivery Device BiPAP; PO2 48 mmHG (75-100); RR 12; SITE L Radial; SO2 87 % (95-99); Total Carbon Dioxide 23 mmol/L; pCO2 29.2 mmHg (35-45); pH 7.48 (7.35-7.45)
[2021-06-18 06:12] LABS: Anion Gap 11 (5-15); BUN 44 mg/dL (7-18); BUN/Creat Ratio 37.6 RATIO (10-20); Calcium,Total 9.4 mg/dL (8.5-10.1); Chloride 99 mmol/L (98-107); Creatinine, Serum 1.17 mg/dL (0.70-1.30); EST Glomerular Filtration Rate 65 mL/min (>60); Est Glom Filt Rate - Afr Amer 79 mL/min (>60); Estimated Creatinine Clearance 62.64 ml/min; Glucose 123 mg/dL (74-106); Potassium 4.9 mmol/L (3.5-5.1); Sodium Level 134 mmol/L (136-145)
--- NOTE | 2021-06-18 06:30 | PN.CC_ITS ---
Assessment & Plan Assessment/Plan (1) Acute respiratory failure with hypoxia: (2) COVID-19: PLAN: RECOMMENDATIONS: 1. Continue Decadron to complete treatment course. 2. Continue twice daily Lovenox. 3. Continue BiPAP and wean FiO2 to maintain oxygen saturations at or above 90%. 4. Start as needed Atrovent, given tachycardia. 5. Recheck D-dimer. 6. Encourage incentive spirometer use and mobilize patient as tolerated. 7. Maintain euvolemic state. Continue to utilize as needed Lasix. 8. Continue Robitussin with codeine for cough suppression. IMPRESSIONS: 1. Acute hypoxic respiratory failure secondary to COVID-19 pneumonia The patient presented to the hospital with worsening respiratory status despite having received monoclonal antibody therapy. The patient has since completed a treatment course of remdesivir and will remain on Decadron to complete a 10-day course. He will be continued on a combination of heated high flow and BiPAP, as tolerated to maintain oxygen saturations at or above 90%. Encourage incentive spirometer use and mobilize patient as tolerated. Maintain euvolemic state with as needed diuretic therapy. 2. Hypertension/obesity/advanced age/inappropriate hydroxychloroquine use Complicates care, management, recovery and prognosis. Okay to continue lisinopril for now. This note was generated with [employer] dictation software. It may contain incorrect words, spelling, and punctuation that were not noted in checking the note before signing. Subjective Subjective The patient was seen and examined at the bedside this morning. Events from the last 24 hours have been reviewed. The patient is currently febrile with a temperature overnight of 101.7 ?F. Although he remains hemodynamically stable, the patient is tachycardic and tachypneic this morning. He decompensated overnight from a respiratory perspective and is now requiring BiPAP support with an FiO2 requirement of 85%. The patient continues to have a significant cough and readily desaturates when he experiences these episodes. The patient is currently documented to be overall net -3 L for the hospital admission. ABG obtained on BiPAP this morning revealed a pH of 7.48, PCO2 of 29 and PO2 of 48. Chest x-ray this morning continue to demonstrate bilateral airspace opacities. Objective Data Objective Data The patient's most recent lab work, culture data and imaging studies have all been personally reviewed. Coronavirus PCR was positive on June 04. Blood cultures have demonstrated no growth to date. Strep and urine Legionella antigens were negative. Vital Signs: Vital Signs Temp Pulse Resp BP Pulse Ox 101.7 F H 116 H 36 H 167/72 H 80 06/18/21 01:05 06/18/21 06:00 06/18/21 06:00 06/18/21 06:00 06/18/21 05:00 Oxygen Flow Rate (L/min) 40 Oxygen Delivery Method Bi-pap Weight: 97.4 kg Body Mass Index (BMI) 29.4 Intake & Output: Intake and Output for Last 24 Hours 06/16/21 06/17/21 06/18/21 23:59 23:59 23:59 Intake Total 440 / 440 735 / 735 Output Total 1625 / 1750 860 / 860 100 / 100 Balance -1185 / -1310 -125 / -125 -100 / -100 Lab / Micro Data Attestation: I reviewed the patient's lab results. Result Diagrams: 06/16/21 04:45 06/18/21 05:35 Labs: Laboratory Results - last 24 hr 06/18/21 05:35: Sodium 134 L, Potassium 4.9, Chloride 99, Carbon Dioxide 24.0, Anion Gap 11, BUN 44 H, Creatinine 1.17, Estim Creat Clear Calc 62.64, Est GFR (MDRD) Af Amer 79, Est GFR (MDRD) Non-Af 65, BUN/Creatinine Ratio 37.6 H, Glucose 123 H, Calcium 9.4 Micro: Microbiology 06/16/21 08:30 Urine, Clean Catch Legionella Antigen - Final 06/16/21 08:30 Urine, Clean Catch Streptococcus pneumoniae Antigen (M - Final 06/10/21 00:25 Blood Culture (Wb) - Right Forearm Blood Culture - Final No growth in 5 days. 06/10/21 00:05 Blood Culture (Wb) - Left Wrist Blood Culture - Final No growth in 5 days. ABG Data ABG results: ABG 06/18/21 05:43 Specimen Type ART Sample Site L Radial pH 7.48 H Bicarbonate Actual 21.9 L Total CO2 23 Base Excess -2 O2 Saturation 87 L O2 % 100 ABG pCO2 29.2 L ABG pO2 48 L Mert Test Positive Respiration Rate 12 O2 Delivery Device BiPAP Clinical Comments 06/08 Physical Exam Const alert and oriented x3 Constitutional Narrative: Appears more labored this morning, sitting in bed. General Appearance: cooperative, ill appearing and on BiPAP Nutritional Appearance: obese HEENT normocephalic, head/scalp atraumatic and moist oral mucous membranes Eyes PERRL, EOMs intact bilaterally and conjunctivae normal Neck supple General: trachea midline Resp Effort and Inspection: symmetric chest movement, tachypneic and labored; Negativ e for actively coughing Auscultation: rales and diminished lung sounds; Negative for rhonchi or wheezes Cardio S1 normal heart sound, S2 normal heart sound and no murmurs Rate: tachycardic GI normal to inspection, nondistended, normoactive bowel sounds Extremity no clubbing, cyanosis or edema Skin no rashes or lesions noted Neuro oriented x3, CN's II-XII intact bilaterally, moves all extremities and no focal motor deficits Psych cooperative and affect normal Charges/Coding Visit Charges Inpatient E&M: 79261 Subs Hosp L3
--- NOTE | 2021-06-18 07:24 | NURSING ---
Charting of Jamila reviewed, agree with assessments and documentation.
[2021-06-18] MEDS: Ipratropium 0.5 MG/2.5 ML SOLUTION INHALATION (08:13)
[2021-06-18 09:16] LABS: D-Dimer Quantitative (DVT/PE) 19.62 FEU/ug/m (0.27-0.49)
--- NOTE | 2021-06-18 09:17 | CT_ITS ---
We are attempting to reach an attending provider to discuss findings. An addendum with communication details will be sent when the communication is complete. STUDY: CTA CHEST REASON FOR EXAM: Male, 70 years old. PE rule out RADIATION DOSAGE (If Supplied By Facility): CTDIvol = ( 13.80 ) mGy, DLP = ( 465.85 ) mGycm TECHNIQUE: The examination was performed with the intravenous administration of IV 100mL Isovue-370. Post-processing of the angiographic images was performed, with multiplanar reformation and 3D reconstruction. Individualized dose optimization techniques were used for this CT. COMPARISON: None. FINDINGS: Normal enhancement of the main pulmonary artery and right and left pulmonary arteries. Filling defects in peripheral branch of left lower lobe consistent with pulmonary embolism. There is atherosclerotic calcification of the aortic arch with tortuosity. There is no demonstrated aortic dissection. Normal heart and pericardium. Subcutaneous emphysema, pneumomediastinum extending the neck. Possible pneumopericardium. Few nodes in the aortopulmonic window and subcarinal region could be reactive. Normal visualized trachea and bronchi. Extensive patchy bilateral groundglass infiltrates more dense in the right lower lung concerning for multifocal pneumonia including Covid 19. There are no pleural effusions. Normal chest wall structures. There are degenerative changes of thoracic spine. 5.5 cm cyst in the left lobe of the liver. No demonstrated acute process in the visualized upper abdomen. CT/CTA Chest W/WO Contrast IMPRESSION: 1. Filling defects in peripheral branch of left lower lobe consistent with pulmonary embolism. 2. No evidence of central pulmonary embolism. 3. Pneumomediastinum and possible mild pneumopericardium. 4. Extensive patchy bilateral infiltrates worse in the right lower lobe consistent with multifocal pneumonia including Covid 19. 5. Mediastinal nodes probably reactive. 6. Liver cyst. Electronically Signed: Jermey Lombardo MD at 10:46 EDT Tel , Service support ,
--- NOTE | 2021-06-18 10:34 | PN.HOSP_ITS ---
Subjective Subjective Patient seen and examined. He is noted to be more tachypneic and tachycardic, and also feels more short of breath. Review of systems otherwise negative. He was also noted to be febrile this morning, with temperature going up to 101.7F. Objective Data Objective Data Vital Signs: Vital Signs Temp Pulse Resp BP Pulse Ox 101.7 F H 115 H 37 H 155/72 H 99 06/18/21 01:05 06/18/21 08:15 06/18/21 08:15 06/18/21 07:00 06/18/21 07:04 Oxygen Flow Rate (L/min) 40 Oxygen Delivery Method Bi-pap Weight: 213 lb 10.047 oz Body Mass Index (BMI) 29.4 Intake & Output: Intake and Output for Last 24 Hours 06/16/21 06/17/21 06/18/21 23:59 23:59 23:59 Intake Total 440 / 440 735 / 735 50 / 50 Output Total 1625 / 1750 860 / 860 400 / 400 Balance -1185 / -1310 -125 / -125 -350 / -350 Lab / Micro Data Result Diagrams: 06/16/21 04:45 06/18/21 05:35 Labs: Laboratory Results - last 24 hr 06/18/21 05:35: Sodium 134 L, Potassium 4.9, Chloride 99, Carbon Dioxide 24.0, Anion Gap 11, BUN 44 H, Creatinine 1.17, Estim Creat Clear Calc 62.64, Est GFR (MDRD) Af Amer 79, Est GFR (MDRD) Non-Af 65, BUN/Creatinine Ratio 37.6 H, Glucose 123 H, Calcium 9.4 06/18/21 08:30: D-Dimer Quant (PE/DVT) 19.62 H* Micro: Microbiology 06/16/21 08:30 Urine, Clean Catch Legionella Antigen - Final 06/16/21 08:30 Urine, Clean Catch Streptococcus pneumoniae Antigen (M - Final 06/10/21 00:25 Blood Culture (Wb) - Right Forearm Blood Culture - Final No growth in 5 days. 06/10/21 00:05 Blood Culture (Wb) - Left Wrist Blood Culture - Final No growth in 5 days. ABG Data ABG results: ABG 06/18/21 05:43 Specimen Type ART Sample Site L Radial pH 7.48 H Bicarbonate Actual 21.9 L Total CO2 23 Base Excess -2 O2 Saturation 87 L O2 % 100 ABG pCO2 29.2 L ABG pO2 48 L Mert Test Positive Respiration Rate 12 O2 Delivery Device BiPAP Clinical Comments 06/08 Radiography Diagnostic Testing: Radiology Impression Chest X-Ray 06/18/21 05:34 IMPRESSION: No change in bilateral pneumonia. Electronically Signed: Osmin Luo MD at 8:03 EDT Tel , Service support , Physical Exam Const alert, oriented x3 and no apparent distress Exam Limitations: no limitations HEENT head/scalp atraumatic, moist oral mucous membranes and oropharynx normal Head and Scalp: normocephalic Eyes PERRL, EOMs intact bilaterally and conjunctivae normal Neck no lymphadenopathy and supple Resp Resp Narrative: diminished breath sounds bibasally, bilateral crackles, tachypneic, on BIPAP Cardio regular rhythm, S1 normal heart sound, S2 normal heart sound and no murmurs Cardio Narrative: tachycardic GI normal to inspection, nondistended, normoactive bowel sounds, soft to palpation, non-tender and non-distended Extremity normal to inspection, full ROM and no clubbing, cyanosis or edema Peripheral Pulses: Yes pulses 2+ throughout Skin no rashes or lesions noted Neuro oriented x3, CN's II-XII intact bilaterally and moves all extremities Sensorium / Orientation: awake and alert Psych affect normal Assessment & Plan Assessment/Plan (1) COVID-19: (2) Acute respiratory failure with hypoxia: (3) Pneumonia due to COVID-19 virus: PLAN: #Acute hypoxic respiratory failure due to COVID 19 infection * patient now on BIPAP. more tachypneic and tachycardic today. * critical care on board * on decadron; has completed a course of remdesivir. * ID on board * also being diuresed with IV lasix, in cumulative negative balance by 3.2L * had D dimer done today which was elevated at 19. CTA ordered * started on IV zosyn as well due to his being febrile * #Hypertension: on lisinopril. #GI prophylaxis; PPI #DVT prophylaxis: lovenox 30mg bid. Charges/Coding Visit Charges Inpatient E&M: 71298 Subs Hosp L3
[2021-06-18 11:22] LABS: Absolute Lymphocyte Count 0.54 X10^3/uL (0.83-4.51); Basophil# 0.02 X10^3/uL; Basophil% 0.1 % (0-1); Eosinophil# 0.08 X10^3/uL; Eosinophils% 0.4 % (0-5); Hematocrit 41.2 % (40-54); Hemoglobin 13.9 g/dL (13.0-16.5); Lymphocyte # 0.54 X10^3/ul (0.83-4.51); Lymphocyte % 2.8 % (19-41); Mean Corp Hgb Conc 33.7 g/dL (32-36); Mean Corpuscular Hgb 30.5 pg (27.0-32.0); Mean Corpuscular Volume 90.5 fL (80-94); Mean Platelet Vol. 11.4 fl (6.2-12.0); Monocyte# 0.39 X10^3/uL; NRBC Flagged by Analyzer 0 % (0-5); Neutrophil # 18.04 X10^3/uL (2.7-7.7); Neutrophil % 94.1 % (47-70); POSITIVE DIFFERENTIAL YES; Platelet Count 194 K/mm3 (150-450); RBC Distribution Width CV 13.8 % (11.6-14.6); RBC Distribution Width SD 46.3 fl (35.1-43.9); Red Blood Count 4.55 M/mm3 (4.6-6.2); White Blood Count 19.2 K/mm3 (4.4-11.0)
[2021-06-18 11:24] LABS: Differential Indicated SCAN CRITERIA MET
[2021-06-18 11:27] LABS: International Normalized Ratio 1.2; Prothrombin Time (Protime)PT. 14.8 SECONDS (11.7-14.9)
[2021-06-18] MEDS: NYSTATIN 500,000 UNIT/5 ML UDC 500000 UNIT PO (11:51)
[2021-06-18] MEDS: Lisinopril 10 MG Tablet PO (11:51)
[2021-06-18] MEDS: Pantoprazole Sodium 20 MG Tablet PO (11:51)
[2021-06-18] MEDS: Ibuprofen 600 MG Tablet PO (11:52)
[2021-06-18] MEDS: dexAMETHasone 10 MG/ML Vial 6 MG IV (11:52)
[2021-06-18] MEDS: busPIRone 5 MG Tablet PO (11:52)
[2021-06-18] MEDS: 0.9% Saline Lock 10 ML Syringe IV ×2 (11:53→17:55)
[2021-06-18] MEDS: HEPARIN/D5w 25,000 UNITS 25,000 UNITS/250 ML IV.SOLN. 14 UNITS IV (12:00)
--- NOTE | 2021-06-18 16:23 | CPS ---
Pulse ox not reading accurately. Patient is maxed out on AIRVO and has a Non Rebreather at 15L over the AIRVO cannula.
--- NOTE | 2021-06-18 18:07 | CPS ---
patient continues to wear the NRB over the AIRVO
[2021-06-18 18:18] LABS: Partial Thromboplast Time 48.6 Seconds (24.1-36.2)
[2021-06-18] MEDS: Heparin Injection (Vial) 5,000 UNIT/ML VIAL IV (19:53)
--- NOTE | 2021-06-18 20:50 | NURSING ---
Patient placed on the BiPAP by Morris RT, placed on 04/08 100%.
--- NOTE | 2021-06-18 23:45 | NURSING ---
23:45 Mendez Catheter placed prior to intubation. 23:50 Dr Garcia in the room 23:55 [id number] given along with Etomidate 20mg 23:56 ETT placed color change noted and Bilateral breath sounds 23cm@ lip size 7.5 ETT 00:02 OG placed 00:07 Propofol started at 10 mcg/kg/min
[2021-06-18] MEDS: Succinylcholine Chloride 200 MG/10 ML Vial 100 MG IV (23:55)
[2021-06-18] MEDS: Etomidate 20 MG/10 ML Vial IV (23:55)
[2021-06-19] VITALS (30 sets, daily range): BP systolic 69–195; BP diastolic 40–96; PULSE 86–130; RESP 9–147; TEMP 37.7–39.3; O2SAT 36–97
[2021-06-19] MEDS: Propofol 10MG/Ml 1,000 MG/100 ML Bottle 5.8 MG CONT INF (00:07)
--- NOTE | 2021-06-19 00:07 | RAD_ITS ---
STUDY: X-RAY CHEST REASON FOR EXAM: Male, 70 years old. Endotracheal tube. TECHNIQUE: AP COMPARISON: CT chest 06/18/2021. FINDINGS: The patient''s chin obscures the upper lungs and most of the trachea. This includes the endotracheal tube which is not well seen. Enteric tube tip in the right upper abdomen in either the distal stomach or proximal duodenum. Multifocal pneumonia again demonstrated. No apparent pneumothorax. Small volume pneumomediastinum. RAD/Chest 1 View (Portable) IMPRESSION: The endotracheal tube is mostly obscured by the patient''s chin. Recommend repeating study with better positioning. Enteric tube tip in the right upper abdomen in either the distal stomach or proximal duodenum. Electronically Signed: Noam Mendoza MD at 2:03 EDT Tel , Service support ,
--- NOTE | 2021-06-19 00:09 | PCM.HOSP.N ---
Hospitalist Note Intubation Note: Patient with evidence of respiratory distress, maximized on BiPAP settings, CTPA performed earlier in the day with subcutaneous emphysema, pneumomediastinum extending into the neck likely exacerbated by continued BiPAP usage. Medications administered: Etomidate 20 mg, succinylcholine 100 mg. ETT size: 7.5 Patient intubated in standard fashion with visualization of the vocal cords and passage of the ETT with appropriate color change and positioning verified with auscultation. Post-intubation CXR requested. Patient already maintained in the ICU and ICU physician made aware of current intubated status. Will continue sedation w/ fentanyl and propofol. Post intubation ABG requested. Procedures Hospitalists Procedures: [id number] Insert Emergency Airway
--- NOTE | 2021-06-19 00:20 | RAD_ITS ---
STUDY: RADIOGRAPH- ABDOMEN/PELVIS REASON FOR EXAM: Male, 70 years old. Confirm OG placement -- Prior to admin of any med,fluid,flush,enteral feed TECHNIQUE: AP COMPARISON: None. FINDINGS: Enteric tube tip in the right upper abdomen in either the proximal duodenum or distal stomach. No evidence of free air or bowel obstruction. No suspicious mass effect or abnormal calcifications. No acute osseous abnormality. Multifocal pneumonia partially visible. RAD/Abdomen Single View (Portable) IMPRESSION: Enteric tube tip in the right upper abdomen in either the proximal duodenum or distal stomach. Electronically Signed: Noam Mendoza MD at 2:04 EDT Tel , Service support ,
[2021-06-19] MEDS: Propofol 10MG/Ml 1,000 MG/100 ML Bottle 29.1 MG CONT INF (02:00)
[2021-06-19 02:13] LABS: CPK Total, Creatine Kinase 60 U/L (39-308); Triglycerides 125 mg/dL
--- NOTE | 2021-06-19 02:20 | RAD_ITS ---
STUDY: X-RAY CHEST REASON FOR EXAM: Male, 70 years old. Endotracheal tube. TECHNIQUE: AP COMPARISON: Earlier same date. FINDINGS: Endotracheal tube tip mid thoracic trachea. Enteric tube tip in the right upper abdomen in either the distal stomach or proximal duodenum. Multifocal pneumonia again demonstrated. No apparent pneumothorax. Cardiac and mediastinal contours not significantly changed. RAD/Chest 1 View (Portable) IMPRESSION: Endotracheal tube tip mid thoracic trachea. Electronically Signed: Noam Mendoza MD at 3:00 EDT Tel , Service support ,
[2021-06-19 02:31] LABS: Allen Test Positive; Base Excess -3 mmol/L (-2 to +2); Bicarbonate 22.3 mmol/L (22-26); Blood Gas Specimen Type ART; FI02 100; Mode AC; O2 Delivery Device Adult Vent; PEEP 10; PO2 54 mmHG (75-100); RR 14; SITE R Radial; SO2 88 % (95-99); Total Carbon Dioxide 23 mmol/L; Vt 450; pCO2 36.6 mmHg (35-45); pH 7.39 (7.35-7.45)
[2021-06-19 02:44] LABS: Partial Thromboplast Time 75.6 Seconds (24.1-36.2)
[2021-06-19] MEDS: HEPARIN/D5w 25,000 UNITS 25,000 UNITS/250 ML IV.SOLN. 15 UNITS IV ×2 (02:57→19:38)
[2021-06-19] MEDS: Acetaminophen 650 MG/20 ML UDC GT ×2 (03:35→11:46)
[2021-06-19] MEDS: TITRATION PARAMETER CHANGE 1 EACH IV (05:43)
--- NOTE | 2021-06-19 05:52 | PN.CC_ITS ---
Assessment & Plan Assessment/Plan (1) Acute respiratory failure with hypoxia: (2) COVID-19: PLAN: RECOMMENDATIONS: 1. Wean FiO2/PEEP to maintain oxygen saturations at or above 90%. 2. Maintain plateau pressures less than 30. 3. Continue propofol and fentanyl for sedation. 4. Continue empiric antimicrobials. 5. Obtain blood and urine cultures. 6. Continue heparin infusion. 7. Maintain euvolemic state. Continue to utilize as needed Lasix. 8. Okay to start tube feeds today. IMPRESSIONS: 1. Acute hypoxic respiratory failure secondary to COVID-19 pneumonia The patient presented to the hospital with worsening respiratory status despite having received monoclonal antibody therapy. The patient has since completed a treatment courses of remdesivir and Decadron. Despite the aforementioned interventions, the patient remained quite tenuous from a respiratory perspective and subsequently decompensated on June 19, requiring intubation. CTA chest did demonstrate evidence of pulmonary embolism, continued bilateral infiltrates and pneumomediastinum. The patient will be continued on assist control with a goal to minimize airway pressures as tolerated. Continue to wean FiO2 to maintain oxygen saturations at or above 90%. The patient will once again be continued on empiric antimicrobials, pending infectious work-up. Cultures are pending. Continue heparin infusion as ordered. Maintain euvolemic state with as needed diuretic therapy. 2. Left lower lobe PE/pneumomediastinum Continue supportive measures with invasive mechanical ventilatory support and continuous heparin infusion. Minimize PEEP as tolerated. 3. Hypertension/obesity/advanced age/inappropriate hydroxychloroquine use Complicates care, management, recovery and prognosis. Hold antihypertensives for now. Initiate tube feeds today. TIME: 38 minutes of critical care time, independent of procedures, was spent addressing the patient's acute hypoxemic respiratory failure, COVID-19 pneumonia, left lower lobe PE, pneumomediastinum, review of all data and collaboration with the care team. ([id number]) Subjective Subjective The patient was seen and examined at the bedside this morning. Events from the last 24 hours have been reviewed. The patient has been febrile overnight with a T-max of 102.4 ?F. Unfortunately, the patient continued to decompensate from a respiratory perspective and had to be intubated overnight. He is currently documented to be overall net -3.6 L for the hospital admission. In response to the patient's fever and further clinical decompensation yesterday, a CTA chest was obtained yesterday morning and revealed left lower lobe PE along with pneumomediastinum and possible pneumopericardium. Continued evidence of bilateral groundglass infiltrates were again noted. The patient remains on a continuous heparin infusion. The patient was also started on empiric antimicrobials yesterday. MRSA screen was negative. The patient is currently being maintained on assist control mode of mechanical ventilation with an FiO2 requirement of 100% and PEEP of 10. Nursing staff did report some mild hematuria status post bennett catheter placement overnight. He is sedated on propofol and fentanyl. Objective Data Objective Data The patient's most recent lab work, culture data and imaging studies have all been personally reviewed. Coronavirus PCR was positive on June 04. Blood cultures have demonstrated no growth to date. Strep and urine Legionella antigens were negative. Sputum culture is pending. Vital Signs: Vital Signs Temp Pulse Resp BP Pulse Ox 101.6 F H 95 19 H 98/50 L 90 06/19/21 05:00 06/19/21 05:00 06/19/21 05:00 06/19/21 05:00 06/19/21 05:00 Oxygen Flow Rate (L/min) 60 Oxygen Delivery Method Mechanical Ventilator Weight: 93.2 kg Body Mass Index (BMI) 29.4 Intake & Output: Intake and Output for Last 24 Hours 06/17/21 06/18/21 06/19/21 23:59 23:59 23:59 Intake Total 735 / 735 544.53 / 544.53 378.19 / 378.19 Output Total 860 / 860 1175 / 1525 350 / 350 Balance -125 / -125 -630.47 / -980.47 28.19 / 28.19 Lab / Micro Data Attestation: I reviewed the patient's lab results. Result Diagrams: 06/19/21 01:43 06/19/21 01:43 Labs: Laboratory Results - last 24 hr 06/18/21 05:35: Sodium 134 L, Potassium 4.9, Chloride 99, Carbon Dioxide 24.0, Anion Gap 11, BUN 44 H, Creatinine 1.17, Estim Creat Clear Calc 62.64, Est GFR (MDRD) Af Amer 79, Est GFR (MDRD) Non-Af 65, BUN/Creatinine Ratio 37.6 H, Glucos e 123 H, Calcium 9.4 06/18/21 08:30: D-Dimer Quant (PE/DVT) 19.62 H* 06/18/21 08:30: WBC 19.2 H, RBC 4.55 L, Hgb 13.9, Hct 41.2, MCV 90.5, MCH 30.5, MCHC 33.7, RDW Std Deviation 46.3 H, RDW Coeff of [place] 13.8, Plt Count 194, MPV 11.4, Immature Gran % (Auto) 0.600, Neut % (Auto) 94.1 H, Lymph % (Auto) 2.8 L, [place] % (Auto) 2.0, Eos % (Auto) 0.4, Baso % (Auto) 0.1, Absolute Neuts (auto) 18.0 H, Absolute Lymphs (auto) 0.54 L, Nucleated RBC % 0 06/18/21 08:30: PT 14.8, INR 1.2, APTT 26.0 06/18/21 17:50: APTT 48.6 H 06/19/21 01:47: APTT 75.6 H 06/19/21 01:47: Total Creatine Kinase 60, Triglycerides 125 Micro: Microbiology 06/16/21 08:30 Urine, Clean Catch Legionella Antigen - Final 06/16/21 08:30 Urine, Clean Catch Streptococcus pneumoniae Antigen (M - Final 06/10/21 00:25 Blood Culture (Wb) - Right Forearm Blood Culture - Final No growth in 5 days. 06/10/21 00:05 Blood Culture (Wb) - Left Wrist Blood Culture - Final No growth in 5 days. ABG Data ABG results: ABG 06/19/21 02:23 Specimen Type ART Sample Site R Radial pH 7.39 Bicarbonate Actual 22.3 Total CO2 23 Base Excess -3 L O2 Saturation 88 L O2 % 100 ABG pCO2 36.6 ABG pO2 54 L Mert Test Positive Respiration Rate 14 O2 Delivery Device Adult Vent Vent Mode AC Tidal Volume 450 POC PEEP 10 Radiography Diagnostic Testing: Radiology Impression Chest X-Ray 06/18/21 05:34 IMPRESSION: No change in bilateral pneumonia. Electronically Signed: Osmin Luo MD at 8:03 EDT Tel , Service support , Chest CTA 06/18/21 09:17 IMPRESSION: 1. Filling defects in peripheral branch of left lower lobe consistent with pulmonary embolism. 2. No evidence of central pulmonary embolism. 3. Pneumomediastinum and possible mild pneumopericardium. 4. Extensive patchy bilateral infiltrates worse in the right lower lobe consistent with multifocal pneumonia including Covid 19. 5. Mediastinal nodes probably reactive. 6. Liver cyst. Electronically Signed: Jeremy Lombardo MD at 10:46 EDT Tel , Service support , ADDENDUM: 06/18/21 1109 IMPRESSION: 1. Filling defects in peripheral branch of left lower lobe consistent with pulmonary embolism. 2. No evidence of central pulmonary embolism. 3. Pneumomediastinum and possible mild pneumopericardium. 4. Extensive patchy bilateral infiltrates worse in the right lower lobe consistent with multifocal pneumonia including Covid 19. 5. Mediastinal nodes probably reactive. 6. Liver cyst. N.B. : The above Results were Read Back by Jeremy Lombardo MD to Jocelyn Barnett RN, and understanding confirmed on 06/18/2021 11:02:35 (ET). Electronically Signed: Jeremy Lombardo MD at 10:46 EDT Tel , Service support , Chest X-Ray 06/19/21 00:07 IMPRESSION: The endotracheal tube is mostly obscured by the patient''s chin. Recommend repeating study with better positioning. Enteric tube tip in the right upper abdomen in either the distal stomach or proximal duodenum. Electronically Signed: Noam Mendoza MD at 2:03 EDT Tel , Service support , KUB X-Ray 06/19/21 00:20 IMPRESSION: Enteric tube tip in the right upper abdomen in either the proximal duodenum or distal stomach. Electronically Signed: Noam Mendoza MD at 2:04 EDT Tel , Service support , Chest X-Ray 06/19/21 02:20 IMPRESSION: Endotracheal tube tip mid thoracic trachea. Electronically Signed: Noam Mendoza MD at 3:00 EDT Tel , Service support , Physical Exam Const no apparent distress General Appearance: ill appearing, intubated and patient mechanically ventilated HEENT normocephalic and head/scalp atraumatic Mouth: endotracheal tube in place and OG tube in place Eyes PERRL and conjunctivae normal Neck supple General: trachea midline Resp Resp Narrative: No ventilator dyssynchrony. Auscultation: rales and diminished lung sounds; Negative for rhonchi or wheezes Cardio regular rate and regular rhythm GI normal to inspection, nondistended, normoactive bowel sounds Extremity General Extremity: edema bilateral lower extremity; Negative for clubbing Skin no rashes or lesions noted Neuro Sensorium / Orientation: sedated on vent Charges/Coding Procedures Hospitalists Procedures: [id number] Critial Care 1st Hr
[2021-06-19] MEDS: Propofol 10MG/Ml 1,000 MG/100 ML Bottle 28 MG CONT INF ×3 (06:00→14:29)
[2021-06-19 06:13] LABS: Absolute Neutrophil Count 16.1 X10^3/uL (2.0-7.7); Basophil# 0.02 X10^3/uL; Basophil% 0.1 % (0-1); Eosinophil# 0.01 X10^3/uL; Eosinophils% 0.1 % (0-5); Hematocrit 39.4 % (40-54); Hemoglobin 13.1 g/dL (13.0-16.5); Lymphocyte % 1.2 % (19-41); Mean Corp Hgb Conc 33.2 g/dL (32-36); Mean Corpuscular Hgb 30.8 pg (27.0-32.0); Mean Corpuscular Volume 92.7 fL (80-94); Mean Platelet Vol. 11.8 fl (6.2-12.0); Monocyte# 0.28 X10^3/uL; Monocyte% 1.7 % (0-10); NRBC Flagged by Analyzer 0 % (0-5); Neutrophil # 16.14 X10^3/uL (2.7-7.7); Neutrophil % 96.2 % (47-70); POSITIVE DIFFERENTIAL YES; Platelet Count 163 K/mm3 (150-450); RBC Distribution Width CV 13.9 % (11.6-14.6); RBC Distribution Width SD 47.8 fl (35.1-43.9); Red Blood Count 4.25 M/mm3 (4.6-6.2); White Blood Count 16.8 K/mm3 (4.4-11.0)
[2021-06-19 06:14] LABS: Differential Indicated SCAN CRITERIA MET
[2021-06-19 06:29] LABS: ALB/GLOB Ratio 0.5 RATIO (0.9-2.4); AST(SGOT) 30 U/L (15-37); Alanine Aminotransfer ALT/SGPT 31 U/L (16-61); Albumin, Serum 2.3 g/dL (3.2-5.0); Alkaline Phosphatase 65 U/L (45-117); Anion Gap 12 (5-15); BUN 47 mg/dL (7-18); BUN/Creat Ratio 37.9 RATIO (10-20); Calcium,Total 8.6 mg/dL (8.5-10.1); Chloride 102 mmol/L (98-107); Creatinine, Serum 1.24 mg/dL (0.70-1.30); EST Glomerular Filtration Rate 61 mL/min (>60); Est Glom Filt Rate - Afr Amer 74 mL/min (>60); Globulin 4.5 g/dL (2.2-4.2); Glucose 170 mg/dL (74-106); Potassium 4.7 mmol/L (3.5-5.1); Protein, Total 6.8 g/dL (6.4-8.2); Sodium Level 134 mmol/L (136-145)
[2021-06-19] MEDS: Chlorhexidine 15 ML PO ×2 (08:43→23:04)
[2021-06-19] MEDS: Pantoprazole Sodium 20 MG Tablet PO (08:44)
--- NOTE | 2021-06-19 10:09 | PCM.PN.HOSP ---
Subjective Subjective Patient seen and examined. He decompensated from a respiratory standpoint so had to be intubated overnight. Patient was 100% FiO2 on assist control mode of ventilation this morning at time of review. He was saturating in the 70s, so was switched to APRV mode of ventilation, per critical care. He had a CTA yesterday which showed left lower lobe PE and pneumomediastinum, as well as pneumopericardium, and bilateral ground glass opacities. He was started on heparin drip. Per his nurse, patient also having some mild hematuria. He remains on IV zosyn. Objective Data Objective Data Vital Signs: Vital Signs Temp Pulse Resp BP Pulse Ox 100.7 F H 93 23 H 69/40 L 77 06/19/21 07:00 06/19/21 09:25 06/19/21 09:25 06/19/21 07:00 06/19/21 09:25 Oxygen Flow Rate (L/min) 60 Oxygen Delivery Method Mechanical Ventilator Weight: 205 lb 7.533 oz Body Mass Index (BMI) 29.4 Intake & Output: Intake and Output for Last 24 Hours 06/17/21 06/18/21 06/19/21 23:59 23:59 23:59 Intake Total 735 / 735 544.53 / 544.53 654.19 / 654.19 Output Total 860 / 860 1175 / 1525 675 / 675 Balance -125 / -125 -630.47 / -980.47 -20.81 / -20.81 Lab / Micro Data Result Diagrams: 06/19/21 01:43 06/19/21 01:43 Labs: Laboratory Results - last 24 hr 06/18/21 08:30: WBC 19.2 H, RBC 4.55 L, Hgb 13.9, Hct 41.2, MCV 90.5, MCH 30.5, MCHC 33.7, RDW Std Deviation 46.3 H, RDW Coeff of [place] 13.8, Plt Count 194, MPV 11.4, Immature Gran % (Auto) 0.600, Neut % (Auto) 94.1 H, Lymph % (Auto) 2.8 L, [place] % (Auto) 2.0, Eos % (Auto) 0.4, Baso % (Auto) 0.1, Absolute Neuts (auto) 18.0 H, Absolute Lymphs (auto) 0.54 L, Nucleated RBC % 0 06/18/21 08:30: PT 14.8, INR 1.2, APTT 26.0 06/18/21 17:50: APTT 48.6 H 06/19/21 01:43: WBC 16.8 H, RBC 4.25 L, Hgb 13.1, Hct 39.4 L, MCV 92.7, MCH 30.8, MCHC 33.2, RDW Std Deviation 47.8 H, RDW Coeff of [place] 13.9, Plt Count 163, MPV 11.8, Immature Gran % (Auto) 0.700, Neut % (Auto) 96.2 H, Lymph % (Auto) 1.2 L, [place] % (Auto) 1.7, Eos % (Auto) 0.1, Baso % (Auto) 0.1, Absolute Neuts (auto) 16.1 H, Absolute Lymphs (auto) 0.20 L, Nucleated RBC % 0 06/19/21 01:43: Sodium 134 L, Potassium 4.7, Chloride 102, Carbon Dioxide 20.0 L, Anion Gap 12, BUN 47 H, Creatinine 1.24, Estim Creat Clear Calc 59.10, Est GFR (MDRD) Af Amer 74, Est GFR (MDRD) Non-Af 61, BUN/Creatinine Ratio 37.9 H, Glucose 170 H, Calcium 8.6, Total Bilirubin 1.20 H, AST 30, ALT 31, Alkaline Phosphatase 65, Total Protein 6.8, Albumin 2.3 L, Globulin 4.5 H, Albumin/Globulin Ratio 0.5 L 06/19/21 01:47: APTT 75.6 H 06/19/21 01:47: Total Creatine Kinase 60, Triglycerides 125 Micro: Microbiology 06/16/21 08:30 Urine, Clean Catch Legionella Antigen - Final 06/16/21 08:30 Urine, Clean Catch Streptococcus pneumoniae Antigen (M - Final 06/10/21 00:25 Blood Culture (Wb) - Right Forearm Blood Culture - Final No growth in 5 days. 06/10/21 00:05 Blood Culture (Wb) - Left Wrist Blood Culture - Final No growth in 5 days. ABG Data ABG results: ABG 06/19/21 02:23 Specimen Type ART Sample Site R Radial pH 7.39 Bicarbonate Actual 22.3 Total CO2 23 Base Excess -3 L O2 Saturation 88 L O2 % 100 ABG pCO2 36.6 ABG pO2 54 L Mert Test Positive Respiration Rate 14 O2 Delivery Device Adult Vent Vent Mode AC Tidal Volume 450 POC PEEP 10 Radiography Diagnostic Testing: Radiology Impression Chest CTA 06/18/21 09:17 IMPRESSION: 1. Filling defects in peripheral branch of left lower lobe consistent with pulmonary embolism. 2. No evidence of central pulmonary embolism. 3. Pneumomediastinum and possible mild pneumopericardium. 4. Extensive patchy bilateral infiltrates worse in the right lower lobe consistent with multifocal pneumonia including Covid 19. 5. Mediastinal nodes probably reactive. 6. Liver cyst. Electronically Signed: Jeremy Lombardo MD at 10:46 EDT Tel , Service support , ADDENDUM: 06/18/21 1109 IMPRESSION: 1. Filling defects in peripheral branch of left lower lobe consistent with pulmonary embolism. 2. No evidence of central pulmonary embolism. 3. Pneumomediastinum and possible mild pneumopericardium. 4. Extensive patchy bilateral infiltrates worse in the right lower lobe consistent with multifocal pneumonia including Covid 19. 5. Mediastinal nodes probably reactive. 6. Liver cyst. N.B. : The above Results were Read Back by Jeremy Lombardo MD to Jocelyn Barnett RN, and understanding confirmed on 06/18/2021 11:02:35 (ET). Electronically Signed: Jeremy Lombardo MD at 10:46 EDT Tel , Service support , Chest X-Ray 06/19/21 00:07 IMPRESSION: The endotracheal tube is mostly obscured by the patient''s chin. Recommend repeating study with better positioning. Enteric tube tip in the right upper abdomen in either the distal stomach or proximal duodenum. Electronically Signed: Noam Mendoza MD at 2:03 EDT Tel , Service support , KUB X-Ray 06/19/21 00:20 IMPRESSION: Enteric tube tip in the right upper abdomen in either the proximal duodenum or distal stomach. Electronically Signed: Noam Mendoza MD at 2:04 EDT Tel , Service support , Chest X-Ray 06/19/21 02:20 IMPRESSION: Endotracheal tube tip mid thoracic trachea. Electronically Signed: Noam Mendoza MD at 3:00 EDT Tel , Service support , Physical Exam Const Constitutional Narrative: intubated, sedated. RASS score is -4 HEENT head/scalp atraumatic, moist oral mucous membranes and oropharynx normal Head and Scalp: normocephalic Eyes PERRL, EOMs intact bilaterally and conjunctivae normal Neck no lymphadenopathy and supple Resp normal respiratory effort, no retractions, no use of accessory muscles and clear to auscultation bilaterally Resp Narrative: diminished breath sounds bibasally, intubated and sedated. Cardio regular rate, regular rhythm, S1 normal heart sound, S2 normal heart sound and no murmurs Cardio Narrative: tachycardic GI normal to inspection, nondistended, normoactive bowel sounds, soft to palpation, non-tender and non-distended Extremity normal to inspection, full ROM and no clubbing, cyanosis or edema Peripheral Pulses: Yes pulses 2+ throughout Skin no rashes or lesions noted Neuro Neuro Narrative: intubated, sedated/ RASS score is -4 Assessment & Plan Assessment/Plan (1) COVID-19: (2) Acute respiratory failure with hypoxia: (3) Pneumonia due to COVID-19 virus: PLAN: #Acute hypoxic respiratory failure due to COVID 19 infection patient was emergently intubated critical care on board on decadron; has completed a course of remdesivir. ID on board also being diuresed with IV lasix, in cumulative negative balance by 3.55L had D dimer done today which was elevated at 19. CTA ordered on IV zosyn. blood cultures pending. #PE CTA showed filling defects in the peripheral branch of the left lower lobe consistent with pulmonary embolism. CTA also showed subcutaneous emphysema and pneumomediastinum extending into the neck and possible pneumopericardium. 5.5cm cyst in the left lobe of the liver on heparin drip #Hypertension: on lisinopril. #GI prophylaxis: PPI #DVT prophylaxis:on heparin drip Dispostion I had an extensive discussion of the patient's daughter who is his next of kin available now as his is admitted [facility] for COVID-19 pneumonia. After extensive discussion about patient's poor prognosis and critically ill state, daughter decided to change CODE STATUS to DNR CC. Patient's brother and other family members also came later and I counseled them about patient's prognosis. Family agreed with patient's daughter's decision to make him DNR CC. Patient's daughter also called her mom who was on admission at [facility] and she said her mom said patient would want to be made comfortable and care withdrawn. Patient made DNR CC and CODE STATUS papers signed. Daughter subsequently requested that patient be terminally extubated. Order placed for patient to be terminally extubated. Critical care attending informed. Total time spent on code status and goals of care discussion: 20 mins. Charges/Coding Visit Charges Inpatient E&M: 06016 Subs Hosp L3 Procedures Hospitalists Procedures: [id number] Advncd Care Plan 30 Min
[2021-06-19 10:14] LABS: Partial Thromboplast Time > 250.0 Seconds (24.1-36.2)
--- NOTE | 2021-06-19 11:26 | RAD_ITS ---
EXAM: XR CHEST, 1 VIEW : 1950 CLINICAL INDICATION: pic line placement TECHNIQUE: Frontal view of the chest. This report was created using [employer] report generation technology. COMPARISON: 06/19/2021 at 0209 hrs. FINDINGS: LUNGS AND PLEURAL SPACES: Bilateral airspace disease is not significantly changed. No pneumothorax. No effusion. HEART: Unremarkable. Cardiac silhouette not enlarged. MEDIASTINUM: There is a pneumomediastinum present on this examination. BONES/JOINTS: Unremarkable. SOFT TISSUES: Unremarkable. TUBES, LINES AND DEVICES: Endotracheal tube and nasogastric tube are in stable position. Left-sided PICC line is in place with the distal tip overlying the superior vena cava. RAD/CXR for Line Placement IMPRESSION: 1. Interval development of a pneumomediastinum. There is no change in the lung parenchyma. 2. Support structures in good position. at 1209 Reported and signed by: Jas Hui MD Electronically Signed: Jas Hui MD at 12:08 EDT Tel , Service support ,
[2021-06-19 12:39] LABS: Partial Thromboplast Time 48.4 Seconds (24.1-36.2)
[2021-06-19 13:46] LABS: Base Excess -3 mmol/L (-2 to +2); Bicarbonate 23.4 mmol/L (22-26); Blood Gas Specimen Type ART; FI02 100; Mode BiLevel; O2 Delivery Device Adult Vent; PO2 52 mmHG (75-100); RR 12; SITE R Brach; SO2 81 % (95-99); Total Carbon Dioxide 25 mmol/L; pCO2 50.5 mmHg (35-45); pH 7.28 (7.35-7.45)
--- NOTE | 2021-06-19 16:22 | NURSING ---
[facility] notified of terminal extubation call back says no organs could be procured , extubated @1600 og removed, to 7l high shanelle
[2021-06-19] MEDS: LORazepam 2 MG/ML Syringe 1 MG IV (17:33)
[2021-06-19] MEDS: Morphine 2 MG/ML Syringe 1 MG IV ×2 (17:33→19:55)
[2021-06-19] MEDS: Heparin Injection (Vial) 5,000 UNIT/ML VIAL IV (18:03)
[2021-06-19] MEDS: morphine (oral solution) 10MG/0.5ML Syringe 5 MG SL/PO ×2 (21:04→23:03)
[2021-06-19] MEDS: 0.9% Saline Lock 10 ML Syringe IV (23:03)
[2021-06-19 23:26] LABS: Partial Thromboplast Time 64.2 Seconds (24.1-36.2)
[2021-06-20] VITALS: BP 106/63; PULSE 111; PULSE 114; RESP 20; TEMP 38.6; O2SAT 51
[2021-06-20] MEDS: LORazepam 2 MG/ML Syringe IV (00:25)
[2021-06-20] MEDS: morphine 10 MG/ML Syringe IV (00:25)
[2021-06-20] MEDS: 0.9% Saline Lock 10 ML Syringe IV (00:26)
[2021-06-20] MEDS: morphine (oral solution) 10MG/0.5ML Syringe 5 MG SL/PO (02:00)
[2021-06-20] MEDS: LORazepam 2 MG/ML Bottle 0.5 MG SL (02:43)
[2021-06-20] MEDS: Haloperidol Lactate 10 MG/5 ML UDC SL/PO (02:44)
[2021-06-20] MEDS: proMETHazine 25 MG Tablet 12.5 MG SL/PO (02:44)
[2021-06-20] MEDS: Morphine 2 MG/ML Syringe IV (02:45)
--- NOTE | 2021-06-20 03:26 | NURSING ---
pt went into SVT, pt moaning not responding, pt suctioned for small amt, clear, dr douglas notified, labbored irregular breathing with some apneic episodes.
[2021-06-20 03:30] VITALS: BP 89/62; PULSE 190; RESP 12; TEMP 37.2
[2021-06-20] MEDS: HYDROmorphone 1 MG/ML Syringe IV (03:34)
--- NOTE | 2021-06-20 04:30 | NURSING ---
pt went apneic on the monitor, rn went into room and pt had a faint pulse and then went asystole. dr hussein notifeid
--- NOTE | 2021-06-20 04:36 | PCM.HOSP.N ---
Hospitalist Note Date of : 06/20/21 Time of : 04:30
--- NOTE | 2021-06-20 07:08 | NURSING ---
pt daughter and bother came to see pt and took pts belonging, (2 rings, hearing aids, eye glasses, clothing)
--- NOTE | 2021-06-20 07:20 | EXP.PCM_ITS ---
Preliminary Cause of Preliminary Cause of Preliminary Cause of : acute cardiopulmonary arrest due to acute hypoxic respiratory failure due to COVID 19 infection. Date of Admission: 06/10/21 Principle Diagnosis Problem List: Active and Suspected Problems (Updated 06/10/21 @ 00:[address] Festus Suresh MD) COVID-19 (Acute) Pneumonia due to COVID-19 virus (Acute) Acute respiratory failure with hypoxia (Acute) Hospital Course Patient was a 70-year-old male with a past medical history of hypertension and prostate cancer who was admitted through the ED on 06/10/2021 with a complaint of worsening shortness of breath which started about 5 days prior to admission. The day before presentation, he received an infusion of monoclonal antibody for COVID-19 pneumonia. His saturation was decreasing down to the 80s so he came into the ED where he was admitted and managed for acute hypoxic respiratory failure due to COVID-19 infection. Patient had been taking hydroxychloroquine and ivermectin for about 6 months prior to admission to stave of COVID-19 infection. Chest x-ray done on admission showed bilateral pneumonia. D-dimer was also elevated and CTA of the chest was negative for PE. He was started on IV Decadron and started on remdesivir. Patient shortness of breath gradually worsened and he was transitioned onto airflow with increasing requirements of oxygen and then BiPAP also. Patient however did not improve and he had to have a repeat CT of the chest done on account of worsening hypoxia and tachycardia. CT of the chest showed left lower lobe PE as well as pneumomediastinum as well as pneumopericardium and bilateral groundglass opacities. He was started on heparin drip. Hospital course was also complicated by fever and elevated white cell count and so he was started on IV Zosyn. Patient's condition did not improve in any way he kept on deteriorating. Family was counseled about his critical state and diet prognosis and decision was made to change CODE STATUS to DNR CCA on 06/19/2021. Family requested terminal extubation on 06/11/2021. Patient was made comfortable and at 4:30 AM on 06/20/2021. Cause of was acute cardiopulmonary arrest due to acute hypoxic respiratory failure due to COVID-19 infection. Visit Charges Inpatient E&M: [id number] [facility]
== END 2021-06-20 07:00 | DRG 871 ==
LOC: ED 06-10 00:37 → ICU 06-10 02:25
PROVIDERS: Family Medicine; Internal Medicine Critical Care Medicine; Internal Medicine Infectious Disease; Admitting Provider Hospitalist; Emergency Provider Emergency Medicine; PCP Internal Medicine; Visit Provider Student in an Organized Health Care Education/Training Program
DX: A41.89 Other specified sepsis (principal); U07.1 COVID-19; J12.82 Pneumonia due to coronavirus disease 2019; J96.01 Acute respiratory failure with hypoxia; I26.99 Other pulmonary embolism without acute cor pulmonale; B37.0 Candidal stomatitis; R65.20 Severe sepsis without septic shock; I46.9 Cardiac arrest, cause unspecified; I10 Essential (primary) hypertension; E66.9 Obesity, unspecified; Z85.46 Personal history of malignant neoplasm of prostate; Z79.899 Other long term (current) drug therapy; Z68.29 Body mass index [BMI] 29.0-29.9, adult; M79.661 Pain in right lower leg; Z87.891 Personal history of nicotine dependence
CPT/HCPCS: 31500; 31720; 36569; 36600; 71045; 71275; 74018; 80048; 80053; 82550; 82803; 83605; 83735; 83880; 84100; 84145; 84478; 84484; 85025; 85027; 85379; 85610; 85730; 87040; 87070; 87205; 87449; 87641; 93005; 93971; 94002; 94003; 94640; 94660; 97162; 97166; 97802; 99251; 99282; 99283; J7030; J7040; J7050; M0243; Q9967; A4216; G0463; J0330; J1940; J3010; Q0244